=== PATIENT | female | born 1975 | race Caucasian/White ===

== ENCOUNTER 2018-08-27 23:08 | Observation (INO) | payer OTHER, SELFPAY ==
[2018-08-27 23:09] VITALS: BP 165/109; PULSE 77; RESP 18; TEMP 36.1; O2SAT 97; BMI 33.3
--- NOTE | 2018-08-27 23:24 | RAD_ITS ---
HISTORY:CPChest PainRAD - ChestLEFT SHOULDER PAIN CPChest PainRAD - ChestLEFT SHOULDER PAIN EXAM: XR Chest 1 View: COMPARISON: None FINDINGS: # of images incl. paperwork: 1 LINES/DEVICES: None. LUNGS: Radiographically clear. No consolidation, edema or effusion. No pneumothorax. MEDIASTINUM AND CARDIOVASCULAR STRUCTURES: Cardiac silhouette not enlarged. BONES AND SOFT TISSUES: Unremarkable. RAD/Chest 1 View (Portable) IMPRESSION: No radiographic evidence of acute cardiopulmonary disease. at 0003 Reported and signed by: Jenn Cloud DO Electronically Signed: Jenn Cloud DO at 0:02 EDT Tel , Service support ,
--- NOTE | 2018-08-27 23:24 | EKG12_ITS ---
Test Reason : Blood Pressure : / mmHG Vent. Rate : 080 BPM Atrial Rate : 080 BPM P-R Int : 168 ms QRS Dur : 104 ms QT Int : 404 ms P-R-T Axes : 055 057 061 degrees QTc Int : 465 ms Normal sinus rhythm Incomplete right bundle branch block Borderline ECG Confirmed by DARRON VENCES, PETR ([id number]), proposal editor MANJINDER ONTIVEROS ([id number]) on 08/30/2018 9:31:42 AM Referred By: Jayme Mansfield Confirmed By:PETR ROB MD
[2018-08-27 23:28] VITALS: BP 149/113; PULSE 83; RESP 17; O2SAT 96
--- NOTE | 2018-08-27 23:40 | ED.DCSUM_ITS ---
- ER Visit Summary Date of Service: 08/27/18 Chief Complaint: Left shoulder pain History of Present Illness: The patient is a 43 F presenting with left shoulder pain. Patient states that she has had intermittent pain in her left shoulder for the past 2 days. She states it starts in her left chest and goes to her left arm. She has nausea associated with this. She had dizziness earlier today. She denies diaphoresis, shortness of breath. She denies injury. Pain is not worsened with movement. Denies other complaints. Denies PE/DVT risk factors. Physical Examination: Vitals are stable. Blood pressure 165/109. Patient is afebrile. Alert no acute distress. HEENT exam is unremarkable. Neck is supple. Lungs are clear and equal bilaterally. Heart is regular rate and rhythm. Abdomen is soft nontender nondistended. Extremities are unremarkable. Left shoulder is nontender. Skin is warm and dry. No focal neurologic deficit. Remainder of exam is unremarkable. Emergency Department Course and Treatment: Patient was given aspirin on arrival. CBC, chemistries unremarkable. Troponin is negative. EKG is sinus rate of 80 with T wave inversion V2 compared to previous. Chest x-ray shows no acute process. On reevaluation patient is pain-free. Discussed with hospitalist for observation. Disposition: Observation Impression: Chest pain, left shoulder pain This note was generated with [employer] dictation software. It may contain incorrect words, spelling, and punctuation that were not noted in review of the chart prior to signing ED Disposition - Plan for ED Patient: Referrals: Mahsa Lira MD [Primary Care Provider] -
[2018-08-27] MEDS: Aspirin 81 MG TAB.CHEW 324 MG PO (23:54)
[2018-08-28] VITALS (12 sets, daily range): BP systolic 98–134; BP diastolic 65–87; PULSE 58–82; RESP 16–17; TEMP 36.5–37.2; O2SAT 94–98; BMI 35.2
[2018-08-28 00:31] LABS: Anion Gap 5 (5-15); BUN 20 mg/dL (7-18); BUN/Creat Ratio 23.5 RATIO (10-20); Calcium,Total 8.5 mg/dL (8.5-10.1); Chloride 106 mmol/L (98-107); Creatinine, Serum 0.85 mg/dL (0.55-1.02); EST Glomerular Filtration Rate 78 mL/min (>60); Est Glom Filt Rate - Afr Amer 94 mL/min (>60); Estimated Creatinine Clearance 77.58 ml/min; Glucose 103 mg/dL (74-106); Potassium 3.6 mmol/L (3.5-5.1); Sodium Level 139 mmol/L (136-145)
[2018-08-28 00:45] LABS: Absolute Lymphocyte Count 3.22 X10^3/ul (0.83-4.51); Absolute Neutrophil Count 4.4 X10^3/uL (2.0-7.7); Basophil# 0.04 X10^3/uL; Basophil% 0.4 % (0-1); Eosinophil# 0.87 X10^3/uL; Eosinophils% 9.5 % (0-5); Hematocrit 41.9 % (37-47); Hemoglobin 15.1 g/dl (12.0-15.0); Lymphocyte # 3.22 X10^3/ul (4.0); Lymphocyte % 35.2 % (19-41); Mean Corpuscular Hgb 31.1 pg (27.0-32.0); Mean Corpuscular Volume 86.2 fL (81-99); Mean Platelet Vol. 10.9 fl (6.2-12.0); Monocyte# 0.63 X10^3/uL; Monocyte% 6.9 % (0-10); Neutrophil # 4.38 X10^3/uL (2.7-7.7); Neutrophil % 47.8 % (47-70); POSITIVE COUNT NO; POSITIVE DIFFERENTIAL NO; POSITIVE MORPHOLOGY NO; Platelet Count 278 K/mm3 (150-450); RBC Distribution Width CV 11.9 % (11.6-14.6); RBC Distribution Width SD 36.7 fl (35.1-43.9); Red Blood Count 4.86 M/mm3 (4.2-5.4); White Blood Count 9.2 K/mm3 (4.4-11.0)
--- NOTE | 2018-08-28 00:51 | ED.RN ---
HOSPITALIST PAGED FOR DR VALDEZ
--- NOTE | 2018-08-28 01:07 | PCM.HP.STD ---
Problem List (1) Chest pain Status: Acute History of Present Illness Date of Admission: 08/27/18 Chief Complaint: left arm pain The patient is a 43 year old F with a significant history of asthma who presented to the emergency department with 2 to 3-day history of episodic left shoulder pain. He describes the pain as deep ache. Her pain radiates to her left arm into her neck. Associated with her symptoms is nausea and lightheadedness. At the time of evaluation her pain was a 2 out of 10. However she describes episodes where her pain has been as severe as 6-7 on a scale of 1-10. She denies any aggravating or ameliorating effect. She is unsure whether her pain emanated from driving as most of times she uses her left hand to drive. She tried switching to driving with her right hand. However she did not notice any change in the pain of her left arm. She reports that because of recent swelling of her ankles her PCP ordered an echocardiogram and an EKG. She reported that both the echocardiogram and the EKG was unremarkable. Past Medical History Medical History: Medical History (Last Reviewed 08/28/18 @ 04:45 by Jayme Mansfield MD) Asthma J45.909 Allergies Penicillins Allergy (Verified 08/27/18 23:09) Rash erythromycin base [Erythromycin Base] Adverse Reaction (Verified 08/27/18 23:09) Unknown Home Medications: Ambulatory Orders Medication Instructions Recorded Albuterol Inhaler [Ventolin Hfa 1 - 2 puff INHALATION Q4H PRN PRN 05/28/16 (SP)] Surgical History: hysterectomy, - - Five C-sections; wisdom tooth extraction. Lives: With Family Smoking Status: Never smoker Alcohol: Occasional - *Family History Paternal History Items: Diabetes, Heart Disease - Her grandma had heart disease when she was in her 70s to 80s. Maternal History Items: Hypertension Review of Systems Constitutional: Denies: Chills, Fever, Weight Change HEENT: Denies: Head Aches, Sinus Congestion, Sinus Drainage Cardiovascular: Reports: Light Headedness. Denies: Chest Pain, Palpitations Respiratory: Denies: Cough, Shortness of breath at rest, Sputum production Gastrointestinal: Reports: Nausea. Denies: Abdominal Pain, Vomiting Genitourinary: Denies: Dysuria Musculoskeletal: Reports: Arm Pain, Neck Pain. Denies: Joint Pain, Joint Tenderness Skin: Denies: Rash, Wounds Neurological: Denies: Numbness, Tingling, Focal weakness Psychiatric: Denies: Anxiety, Depression, Homicidal Ideations, Suicidal Ideations Hematologic/ Lymphatic: Denies: Easy Bruising, Easy Bleeding VTE Information - Inpt Only VTE Present on Admission: No VTE Mechan Device Prophylaxis: None VTE Pharm Prophylaxis ordered?: No Patient Problems: Active and Suspected Problems (Last Updated 08/28/18 @ 02:15 by Jayme Mansfield MD) Chest pain (Acute) - Physical Exam General: Alert, Oriented x3, Cooperative HEENT: Atraumatic, PERRLA, EOMI, Normocephalic Neck: Supple, No JVD, Negative Carotid Bruits Lungs: Clear to auscultation, Normal air movement Cardiovascular: Regular rate, No murmurs Abdomen: Bowel Sounds Present, Soft, Non Tender Extremities: No edema, Capillary Refill Less than 3 Seconds Skin: No rashes, No breakdown Musculoskeletal: No Tenderness to Palpation of Joints or Extremities Neurological: Neuro grossly intact Psych/Mental Status: Normal Affect, Appropriate Vital Signs Temp Pulse Resp BP Pulse Ox 96.9 F L 83 17 149/113 H 96 08/27/18 23:09 08/27/18 23:28 08/27/18 23:28 08/27/18 23:28 08/27/18 23:28 Oxygen Delivery Method Room Air Weight: 90.718 kg Body Mass Index (BMI) 33.3 Laboratory Tests Past 24 Hrs 08/27/18 08/27/18 23:55 23:55 WBC 9.2 RBC 4.86 Hgb 15.1 H Hct 41.9 MCV 86.2 MCH 31.1 MCHC 36.0 RDW 11.9 RDW Differential 36.7 Plt Count 278 MPV 10.9 Immature Gran % (Auto) 0.200 Neut % (Auto) 47.8 Lymph % (Auto) 35.2 Barren % (Auto) 6.9 Eos % (Auto) 9.5 H Baso % (Auto) 0.4 Absolute Neuts (auto) 4.4 Absolute Lymphs (auto) 3.22 Total Counted Not Reportable Sodium 139 Potassium 3.6 Chloride 106 Carbon Dioxide 28.0 Anion Gap 5 BUN 20 H Creatinine 0.85 Estim Creat Clear Calc 77.58 Est GFR (MDRD) Af Amer 94 Est GFR (MDRD) Non-Af 78 BUN/Creatinine Ratio 23.5 H Glucose 103 Calcium 8.5 Troponin I < 0.015 Assessment/Plan All Active Problems (Last Updated 08/28/18 @ 02:15 by Jayme Mansfield MD) Chest pain (Acute) The patient is a 43 year old F with a significant history of asthma who presented to the emergency department with 2 to 3-day history of episodic left shoulder pain; that radiated to her left arm and left neck consistent with angina equivalent of pain. Angina equivalent TINA Score for unstable angina/NSTEMI: 1 point (5% all cause mortality risk) Heart score: 1 point; low score (nonspecific repolarization disturbance) Admit to a monitored bed on PCU CXR independently reviewed confirms no acute cardiopulmonary process. EKG independently reviewed confirms T-wave inversion in leads V2 Old records reviewed did not show T-wave inversion in leads V2 ASA 81 mg p.o. daily SL NTG 0.4 mg prn as needed for chest pain Morphine as needed for pain We will check lipid panel. Serial cardiac enzymes Stat EKG as needed for chest pain If chest pain persist consider stress test. If her chest pain goes away consider discharge with outpatient stress test. Asthma Stable PRN albuterol continued. DVT prophylaxis Subcutaneous Lovenox ordered. Code Visit Inpatient E&M: 93732 Init Hosp L3
--- NOTE | 2018-08-28 01:58 | EKG12_ITS ---
Test Reason : CP ADMISSION Blood Pressure : / mmHG Vent. Rate : 067 BPM Atrial Rate : 067 BPM P-R Int : 166 ms QRS Dur : 100 ms QT Int : 452 ms P-R-T Axes : 059 061 061 degrees QTc Int : 477 ms Normal sinus rhythm Normal ECG Confirmed by GERALD VENCES, ELEAZAR ([id number]), assistant film editor RAJI FERRO ([id number]) on 08/31/2018 12:33:59 PM Referred By: Jayme Mansfield Confirmed By:ELEAZAR DUARTE MD
[2018-08-28 06:40] LABS: Cholesterol 196 mg/dL (200); High Density Lipoprotein 32 mg/dL; Triglycerides 470 mg/dL
[2018-08-28] MEDS: Aspirin E.C. 81 MG Tablet PO (09:22)
[2018-08-28] MEDS: Acetaminophen 325 MG Tablet 650 MG PO (12:46)
--- NOTE | 2018-08-28 18:22 | PCM.HOSP.N ---
Hospitalist Note Patient was seen and examined today, she has had no more episodes of left arm pain, she is agreed to undergo a stress test tomorrow, she is able to walk on the treadmill and so we will make sure that it is a walking nuclear stress test tomorrow. He has no risk factors for coronary artery disease.
[2018-08-28] MEDS: 0.9% NaCl Peripheral Flush Adult/Peds IV (21:36)
[2018-08-29 03:00] VITALS: BP 99/58; PULSE 57; PULSE 60; RESP 18; TEMP 36.6; O2SAT 95
[2018-08-29 05:15] VITALS: BP 109/70; PULSE 71; RESP 18; TEMP 36.6; O2SAT 94
[2018-08-29] MEDS: Aspirin E.C. 81 MG Tablet PO (05:19)
[2018-08-29 05:23] LABS: Absolute Lymphocyte Count 2.96 X10^3/ul (0.83-4.51); Absolute Neutrophil Count 4.5 X10^3/uL (2.0-7.7); Basophil# 0.03 X10^3/uL; Basophil% 0.3 % (0-1); Eosinophil# 0.73 X10^3/uL; Eosinophils% 8.3 % (0-5); Hematocrit 42.5 % (37-47); Hemoglobin 15.1 g/dl (12.0-15.0); Lymphocyte # 2.96 X10^3/ul (4.0); Lymphocyte % 33.8 % (19-41); Mean Corp Hgb Conc 35.5 g/gl (32-36); Mean Corpuscular Hgb 30.2 pg (27.0-32.0); Mean Platelet Vol. 10.5 fl (6.2-12.0); Monocyte% 5.7 % (0-10); Neutrophil # 4.52 X10^3/uL (2.7-7.7); Neutrophil % 51.7 % (47-70); Platelet Count 262 K/mm3 (150-450); RBC Distribution Width CV 11.7 % (11.6-14.6); RBC Distribution Width SD 35.4 fl (35.1-43.9); White Blood Count 8.8 K/mm3 (4.4-11.0)
[2018-08-29 05:26] LABS: POSITIVE COUNT NO; POSITIVE DIFFERENTIAL NO; POSITIVE MORPHOLOGY NO
[2018-08-29 05:32] LABS: Partial Thromboplast Time 31.1 Seconds (24.1-36.2)
[2018-08-29 05:36] LABS: Anion Gap 10 (5-15); BUN 15 mg/dL (7-18); BUN/Creat Ratio 18.8 RATIO (10-20); Calcium,Total 8.3 mg/dL (8.5-10.1); Chloride 103 mmol/L (98-107); EST Glomerular Filtration Rate 84 mL/min (>60); Est Glom Filt Rate - Afr Amer 101 mL/min (>60); Estimated Creatinine Clearance 82.43 ml/min; Glucose 94 mg/dL (74-106); Potassium 3.8 mmol/L (3.5-5.1); Sodium Level 140 mmol/L (136-145)
--- NOTE | 2018-08-29 05:55 | EKG12_ITS ---
Test Reason : AM EKG Blood Pressure : / mmHG Vent. Rate : 066 BPM Atrial Rate : 066 BPM P-R Int : 162 ms QRS Dur : 100 ms QT Int : 454 ms P-R-T Axes : 063 047 060 degrees QTc Int : 475 ms Normal sinus rhythm Cannot rule out Inferior infarct , age undetermined Abnormal ECG Confirmed by GERALD VENCES, ELEAZAR ([id number]), health editor RAJI FERRO ([id number]) on 08/31/2018 12:27:49 PM Referred By: Jayme Mansfield Confirmed By:ELEAZAR DUARTE MD
[2018-08-29 07:21] VITALS: O2SAT 94
[2018-08-29 09:02] VITALS: BP 119/72; PULSE 80; RESP 14; TEMP 36.8; O2SAT 94
--- NOTE | 2018-08-29 09:38 | STRESSREP_ITS ---
Stress Test Report Exercise myocardial perfusion stress test. 43-year-old lady with a history of chest pain. Stress protocol: Resting EKG demonstrates normal sinus rhythm with a rate of 73 bpm normal intervals are noted. The patient exercised according to regular Nael protocol for total duration of 9 minutes. Patient completed stage III of the Nael pr otocol the maximum heart rate attained was 166 bpm which was 93% of maximum predicted heart rate the maximum workload was 10.1 metabolic equivalents. The patient maintained sinus rhythm throughout the recording. At rest there were no ST or T wave changes noted suggest ischemia peak exercise upsloping ST changes only were noted with no meet the criteria for ischemia. No clinical angina was noted the test was terminated due to leg fatigue. The resting blood pressure was 122/88 with a peak blood pressure 168/82. Rate pressure product was 27,800. Myocardial perfusion protocol. 14.2 mCi of technetium 99m sestamibi was injected at rest. Patient exercised according to regular Nael protocol for 9 minutes and at peak exercise 43.9 mCi of technetium 99m sestamibi was injected stress images were obtained stress and rest images were reconstructed and compared in the short axis vertical long horizontal long axis. Gated images were also obtained per Perfusion SPECT analysis: Review of the stress images demonstrate normal uptake of tracer noted in all areas of the myocardium. The resting images similarly demonstrate normal uptake of tracer noted in all areas of the myocardium. No reversibility is noted suggest ischemia. No previous infarct is noted. Gated SPECT analysis: The gated ejection fraction is noted to be 79%. Conclusion: Normal exercise myocardial perfusion stress test at a high workload. Preserved ejection fraction.
--- NOTE | 2018-08-29 09:46 | DCINST_ITS ---
- Discharge Diagnoses Current Active Problems: Current Active and Chronic Problems (Last Reviewed 08/28/18 @ 04:45 by Jayme Mansfield MD) Chest pain (Acute) You will use the following diet at home:: No restrictions Your food should be the consistency of: Regular Your liquids should be the consistency of: Regular/Thin Discharge Activity: Return to Normal Activity Weight Bearing Status: Full weight bearing Allergies/Adverse Reactions: Allergies Penicillins Allergy (Verified 08/27/18 23:09) Rash erythromycin base [Erythromycin Base] Adverse Reaction (Verified 08/27/18 23:09) Unknown Medications to take at Discharge Albuterol Inhaler [Ventolin Hfa] 1 - 2 puff INHALATION Q4H PRN PRN 05/28/16 Primary Care Physician: Mahsa Lira MD [Primary Care Provider] - Please follow up with your Primary Care Physician in: in 2 weeks Test Results: Test results from this visit will be discussed in further detail at your follow- up appointment, if applicable.
--- NOTE | 2018-08-29 09:52 | DS.PCM_ITS ---
Discharge Date and Diagnosis - Problem List Patient Problems: Active and Suspected Problems (Last Reviewed 08/28/18 @ 04:45 by Jayme Mansfield MD) Chest pain (Acute) Date of Admission: 08/27/18 Date of Discharge: 08/29/18 - Primary Discharge Diagnosis Active and Suspected Problems (Last Reviewed 08/28/18 @ 04:45 by Jayme Mansfield MD) #1 left shoulder pain-etiology unknown #2 left neck pain-etiology unknown Hospital Course and Treatment Imaging Results: 08/29/18 05:55 Nuclear Stress Test - Treadmil [NM] AM (NON MEDS) Operations: None Procedures: Nuclear stress test Summary of Care Provided: The patient is a 43 year old F was seen in the emergency room at [facility] chief complaint of left upper arm pain involving the shoulder and radiating into the left neck area. Patient denied to this examiner any chest pain. He described the left arm pain as achy in nature. Patient's work- up in the emergency room was unremarkable including a chest x-ray, EKG, and cardiac enzymes. Patient was placed in observation status on PCU, cardiac enzymes were cycled and these remain normal. EKG remained normal. Patient underwent an exercise nuclear stress test on 08/29/2018 which showed no evidence of reversible ischemia. I had a discussion with the patient concerning her symptoms and told her that perhaps she may have problems with degenerative disc disease in her neck and this would have to be followed up as an outpatient-I did not do any x-rays on her neck while she was in the hospital here. On 08/29/2018, patient was seen and examined: On examination she appeared in good health and spirits. Vital signs as documented. Skin warm and dry and without overt rashes. Neck without JVD. Lungs clear. Heart exam notable for regular rhythm, normal sounds and absence of murmurs, rubs or gallops. Abdomen unremarkable and without evidence of organomegaly, masses, or abdominal aortic enlargement. Extremities nonedematous. Neuro: Cranial nerves II through XII are grossly intact, no focal motor deficits were noted, sensation to light touch and pinprick is intact. Psych: Patient is alert and oriented x3, she does not appear anxious or depressed Patient was discharged in stable condition on 08/29/2018. Patient Problems: Active and Suspected Problems (Last Reviewed 06/16/19 @ 04:45 by Jayme Mansfield MD) Chest pain (Acute) - Physical Exam Vital Signs Temp Pulse Resp BP Pulse Ox 98.3 F 80 14 119/72 94 08/29/18 09:02 08/29/18 09:02 08/29/18 09:02 08/29/18 09:02 08/29/18 09:02 Oxygen Delivery Method Room Air Weight: 96 kg Body Mass Index (BMI) 35.2 Intake and Output for Last 24 Hours 08/27/18 08/28/18 08/29/18 23:59 23:59 23:59 Intake Total 1550 / 1550 60 / 60 Balance 1550 / 1550 60 / 60 Laboratory Tests Past 24 Hrs 08/29/18 08/29/18 08/29/18 05:15 05:15 05:15 WBC 8.8 RBC 5.00 Hgb 15.1 H Hct 42.5 MCV 85.0 MCH 30.2 MCHC 35.5 RDW 11.7 RDW Differential 35.4 Plt Count 262 MPV 10.5 Immature Gran % (Auto) 0.200 Neut % (Auto) 51.7 Lymph % (Auto) 33.8 [place] % (Auto) 5.7 Eos % (Auto) 8.3 H Baso % (Auto) 0.3 Absolute Neuts (auto) 4.5 Absolute Lymphs (auto) 2.96 Total Counted Not Reportable PT 13.0 INR 1.0 APTT 31.1 Sodium 140 Potassium 3.8 Chloride 103 Carbon Dioxide 27.0 Anion Gap 10 BUN 15 Creatinine 0.80 Estim Creat Clear Calc 82.43 Est GFR (MDRD) Af Amer 101 Est GFR (MDRD) Non-Af 84 BUN/Creatinine Ratio 18.8 Glucose 94 Calcium 8.3 L Discharge Activity: Return to Normal Activity Weight Bearing Status: Full weight bearing Home Medications: Medications to take at Discharge Albuterol Inhaler [Ventolin Hfa] 1 - 2 puff INHALATION Q4H PRN PRN 05/28/16 Primary Care Physician: Mahsa Lira MD [Primary Care Provider] - Please follow up with your Primary Care Physician in: in 2 weeks Disposition: Home Minutes spent on discharge:: 25 Patient Condition:: Stable Medical Necessity - Tobacco Use Smoking Status: Never smoker Meaningful Use Info Meaningful Use Diagnoses (Choose all that apply): None applicable Code Visit OBSV E&M: 09395 Observation care discharge
[2018-08-29 09:59] VITALS: PULSE 98
== END 2018-08-29 09:46 | disposition home or self-care (01) ==
LOC: ED 23:35 → PCU 08-28 01:38
PROVIDERS: Admitting Provider Hospitalist; Emergency Provider Emergency Medicine; Family Provider Internal Medicine; PCP Internal Medicine; Referring Provider Hospitalist; Visit Provider Internal Medicine
DX: R07.89 Other chest pain (principal); M25.512 Pain in left shoulder; M54.2 Cervicalgia; R42 Dizziness and giddiness; R11.0 Nausea; J45.909 Unspecified asthma, uncomplicated
CPT/HCPCS: 36415; 71045; 78452; 80048; 80061; 84484; 85025; 85610; 85730; 93005; 93017; 99218; 99285; A9500; J7030; A4216; G0378

== ENCOUNTER 2019-07-25 15:00 | Emergency (ER) | payer OTHER, SELFPAY ==
[2018-08-28 01:59] VITALS: BMI 35.2
[2019-07-25 15:01] VITALS: BP 138/90; PULSE 116; RESP 17; TEMP 37.5; O2SAT 100; BMI 35.3
[2019-07-25 15:04] VITALS: BP 138/90; PULSE 116; RESP 17; TEMP 37.5; O2SAT 97
--- NOTE | 2019-07-25 15:10 | EKG12_ITS ---
Test Reason : CP Blood Pressure : / mmHG Vent. Rate : 106 BPM Atrial Rate : 106 BPM P-R Int : 148 ms QRS Dur : 104 ms QT Int : 358 ms P-R-T Axes : 053 054 053 degrees QTc Int : 475 ms Sinus tachycardia Septal infarct , age undetermined Possible Lateral infarct , age undetermined Possible Inferior infarct , age undetermined Abnormal ECG Confirmed by AROLDO BOWERS ([id number]), rewrite editor BIJU HERR ([id number]) on 07/31/2019 1:51:19 PM Referred By: MINH Confirmed By:AROLDO BOWERS
--- NOTE | 2019-07-25 15:11 | ED.DCSUM_ITS ---
History of Present Illness Chief Complaint: Chest Pain Informant: Patient Onset: Yesterday Current Severity: Mild Maximum Severity: Moderate Narrative: Patient presents with intermittent sharp left upper chest pain that she noted last night. She states she has allergies and frequent cough this time of the year. She is not sure she may have coughed and pulled a muscle. She does not feel short of breath. She used her nebulizer treatment around noon today and her shortness of breath and wheezing along with cough seem to be improved. She denies significant cardiac history. She was admitted a year ago for cardiac evaluation and had a negative stress test at that time. She denies any cardiac complaints in the interval time. Patient denies risk factors for DVT or PE. - Past Medical History (1) Asthma Status: Chronic Past Medical History - Allergies and Home Meds Allergies/Adverse Reactions: Allergies Penicillins Allergy (Verified 07/25/19 15:07) Rash erythromycin base [Erythromycin Base] Adverse Reaction (Verified 07/25/19 15:07) Unknown Primary Care Physician: Mahsa Lira MD [Primary Care Provider] - Prior records reviewed: Yes Surgical History: hysterectomy, - - Five C-sections; wisdom tooth extraction. Lives: With Family Smoking Status: Never smoker - Family History Paternal Family History: Reports: Diabetes, Heart Disease - Her grandma had heart disease when she was in her 70s to 80s. Maternal Family History: Reports: Hypertension Review of Systems General: Denies: Chills, Fever Eyes: Denies: Visual changes - bilaterally ENT: Denies: Bilateral ear pain Cardiovascular: Reports: Chest pain Respiratory: Reports: Cough, - - Wheezing Gastrointestinal: Denies: Abdominal pain, Nausea, Vomiting, Diarrhea Genitourinary: Denies: Dysuria Musculoskeletal: Denies: Swelling, Extremity Pain Skin: Denies: Rash Neurological: Denies: Headache Hematologic: Denies: Easy bruising, Easy bleeding Allergy: Denies: Uticaria Physical Exam Vital Signs/Narrative: Vital Signs Temp Pulse Resp BP Pulse Ox 07/25/19 15:01 99.5 F H 116 H 17 138/90 H 100 Inital Vital Signs reviewed: Yes General: Well nourished, Well developed Head: Normocephalic ENT: Moist mucous membranes Neck: Supple Cardiovascular: Regular rhythm, Tachycardia Respiratory: No distress, CTA bilaterally, Chest tenderness - Mild left anterior chest wall tenderness. No crepitus. Abdomen: Soft, Nontender Extremities: Nontender Skin: Normal color, No rash Neurological: Alert, Oriented x3, Normal Strength, Normal Sensation Psychological: Normal affect Diagnostic/Tx/Re-eval Impressions Chest X-Ray 07/25/19 15:20 IMPRESSION: Normal x-ray examination of the chest. Electronically Signed: Nish Smith, at 15:31 EDT , Service support , 07/25/19 15:20 Chest 1 View (Portable) [RAD] Stat Laboratory Results 07/25/19 07/25/19 07/25/19 15:06 15:06 15:06 WBC 11.5 H RBC 4.92 Hgb 15.0 Hct 43.5 MCV 88.4 MCH 30.5 MCHC 34.5 RDW Std Deviation 38.5 RDW Coeff of Clara 11.9 Plt Count 269 MPV 10.9 Immature Gran % (Auto) 0.300 Neut % (Auto) 74.9 H Lymph % (Auto) 15.9 L [place] % (Auto) 5.0 Eos % (Auto) 3.6 Baso % (Auto) 0.3 Absolute Neuts (auto) 8.6 H Absolute Lymphs (auto) 1.83 Nucleated RBC % 0 D-Dimer Quant (PE/DVT) <= 0.27 Sodium 136 Potassium 3.8 Chloride 102 Carbon Dioxide 27.0 Anion Gap 7 BUN 13 Creatinine 0.83 Estim Creat Clear Calc 78.64 Est GFR (MDRD) Af Amer 96 Est GFR (MDRD) Non-Af 79 BUN/Creatinine Ratio 15.6 Glucose 109 H Calcium 9.1 Troponin I < 0.015 Serum , Qual 07/25/19 15:06 WBC RBC Hgb Hct MCV MCH MCHC RDW Std Deviation RDW Coeff of Clara Plt Count MPV Immature Gran % (Auto) Neut % (Auto) Lymph % (Auto) [place] % (Auto) Eos % (Auto) Baso % (Auto) Absolute Neuts (auto) Absolute Lymphs (auto) Nucleated RBC % D-Dimer Quant (PE/DVT) Sodium Potassium Chloride Carbon Dioxide Anion Gap BUN Creatinine Estim Creat Clear Calc Est GFR (MDRD) Af Amer Est GFR (MDRD) Non-Af BUN/Creatinine Ratio Glucose Calcium Troponin I Serum , Qual NEGATIVE - EKG Initial EKG Interpretation: Sinus Tachycardia - Sinus tach at 106. EKG grossly unchanged from August 2018 with no evidence of ST elevation. - Medical Decision Making Patient was given aspirin on arrival. On repeat evaluation she is resting comfortably. She is reassured with our test results. Patient just had a stress test less than 1 year ago that was unremarkable. Symptoms are not typical for cardiac pain and I suspect that she pulled a muscle with her recent cough. Patient will continue Tylenol or ibuprofen at home for pain. ED Disposition - Plan for ED Patient: Disposition: Home or Assisted Living Diagnosis: Chest wall pain Instructions: ED Chest Pain Atypical Unkn Cause Referrals: Mahsa Lira MD [Primary Care Provider] - 3-5 Days if not improving
[2019-07-25] MEDS: Aspirin 81 MG TAB.CHEW 324 MG PO (15:15)
[2019-07-25 15:18] VITALS: O2SAT 97
[2019-07-25 15:19] LABS: Absolute Lymphocyte Count 1.83 X10^3/uL (0.83-4.51); Absolute Neutrophil Count 8.6 X10^3/uL (2.0-7.7); Basophil# 0.04 X10^3/uL; Basophil% 0.3 % (0-1); Eosinophil# 0.41 X10^3/uL; Eosinophils% 3.6 % (0-5); Hematocrit 43.5 % (37-47); Lymphocyte # 1.83 X10^3/ul (4.0); Lymphocyte % 15.9 % (19-41); Mean Corp Hgb Conc 34.5 g/dL (32-36); Mean Corpuscular Hgb 30.5 pg (27.0-32.0); Mean Corpuscular Volume 88.4 fL (81-99); Mean Platelet Vol. 10.9 fl (6.2-12.0); Monocyte# 0.58 X10^3/uL; NRBC Flagged by Analyzer 0 % (0-5); Neutrophil # 8.63 X10^3/uL (2.7-7.7); Neutrophil % 74.9 % (47-70); Platelet Count 269 K/mm3 (150-450); RBC Distribution Width CV 11.9 % (11.6-14.6); RBC Distribution Width SD 38.5 fl (35.1-43.9); Red Blood Count 4.92 M/mm3 (4.2-5.4); White Blood Count 11.5 K/mm3 (4.4-11.0)
--- NOTE | 2019-07-25 15:20 | RAD_ITS ---
STUDY: X-RAY CHEST REASON FOR EXAM: Female, 44 years old. Left sided chest pain TECHNIQUE: Single AP portable view of the chest. COMPARISON: Comparison is made with prior examination dated August 27, 2018. FINDINGS: EKG electrode are seen. The lungs are clear and expanded. There is no demonstrated pleural abnormality. Normal size heart. Normal mediastinum and billy. Normal visualized pulmonary arteries. Normal visualized aortic arch and descending thoracic aorta. Normal visualized thoracic spine. Normal visualized ribs, clavicles, and shoulders. There is no demonstrated abnormality of the visualized soft tissue structures of the upper abdomen. RAD/Chest 1 View (Portable) IMPRESSION: Normal x-ray examination of the chest. Electronically Signed: Nish Smith, at 15:31 EDT , Service support ,
[2019-07-25 15:31] LABS: Anion Gap 7 (5-15); BUN 13 mg/dL (7-18); BUN/Creat Ratio 15.6 RATIO (10-20); Calcium,Total 9.1 mg/dL (8.5-10.1); Chloride 102 mmol/L (98-107); Creatinine, Serum 0.83 mg/dL (0.55-1.02); EST Glomerular Filtration Rate 79 mL/min (>60); Est Glom Filt Rate - Afr Amer 96 mL/min (>60); Estimated Creatinine Clearance 78.64 ml/min; Glucose 109 mg/dL (74-106); Potassium 3.8 mmol/L (3.5-5.1); Sodium Level 136 mmol/L (136-145)
[2019-07-25 15:46] LABS: D-Dimer Quantitative (DVT/PE) <= 0.27 FEU/ug/m (0.27-0.49)
[2019-07-25 15:47] LABS: Internal QC Validated? YES +Cl - CLEAR BKGD; Pregnancy, Serum, hCG Quali. NEGATIVE Negative
[2019-07-25 16:00] VITALS: BP 129/82; PULSE 100; RESP 18; O2SAT 96
[2019-07-25 16:04] VITALS: BP 129/82; PULSE 100; RESP 18; TEMP 37.5; O2SAT 96
[2019-07-25 16:19] VITALS: BP 129/82; PULSE 102; RESP 18; O2SAT 97
== END 2019-07-25 16:37 | disposition home or self-care (01) ==
PROVIDERS: Emergency Provider Emergency Medicine; PCP Internal Medicine
DX: R07.89 Other chest pain (principal); J45.909 Unspecified asthma, uncomplicated; R00.0 Tachycardia, unspecified; Z88.1 Allergy status to other antibiotic agents; Z88.0 Allergy status to penicillin; Z90.710 Acquired absence of both cervix and uterus
CPT/HCPCS: 71045; 80048; 84484; 84703; 85025; 85379; 93005; 99285; A4216

== ENCOUNTER → 2019-08-03 11:30 | Outpatient (CLI) | payer OTHER, SELFPAY ==
[2019-07-25 15:01] VITALS: BMI 35.3
== END ==
PROVIDERS: PCP Internal Medicine; Referring Provider Internal Medicine; Visit Provider Internal Medicine
DX: Z20.828 Contact with and (suspected) exposure to other viral communicable diseases (principal)
CPT/HCPCS: 87635; G2023; U0004

== ENCOUNTER 2019-08-06 13:58 | Emergency (ER) | payer OTHER, SELFPAY ==
[2019-08-06 14:01] VITALS: BP 126/90; PULSE 123; RESP 24; TEMP 36.6; O2SAT 98; BMI 34.9
[2019-08-06 14:02] VITALS: BP 126/90; PULSE 123; RESP 24; TEMP 36.6; O2SAT 98
--- NOTE | 2019-08-06 14:29 | EKG12_ITS ---
Test Reason : Blood Pressure : / mmHG Vent. Rate : 097 BPM Atrial Rate : 097 BPM P-R Int : 154 ms QRS Dur : 104 ms QT Int : 376 ms P-R-T Axes : 066 058 060 degrees QTc Int : 477 ms Normal sinus rhythm Normal ECG When compared with ECG of 25-JUL-2019 15:10, No significant change was found Confirmed by PETR ROB MD ([id number]), television news video editor RAJI FERRO ([id number]) on 08/15/2019 1:53:18 PM Referred By: MAXIMINO Confirmed By:EPTR ROB MD
[2019-08-06 15:06] VITALS: BP 126/90; PULSE 123; PULSE 97; RESP 20; RESP 24; TEMP 36.6; O2SAT 94; O2SAT 98
[2019-08-06 15:06] LABS: Absolute Lymphocyte Count 1.48 X10^3/uL (0.83-4.51); Absolute Neutrophil Count 8.5 X10^3/uL (2.0-7.7); Basophil# 0.04 X10^3/uL; Basophil% 0.4 % (0-1); Eosinophil# 0.31 X10^3/uL; Eosinophils% 2.8 % (0-5); Hemoglobin 13.7 g/dL (12.0-15.0); Lymphocyte # 1.48 X10^3/ul (4.0); Lymphocyte % 13.3 % (19-41); Mean Corp Hgb Conc 34.3 g/dL (32-36); Mean Corpuscular Hgb 30.9 pg (27.0-32.0); Mean Corpuscular Volume 90.3 fL (81-99); Mean Platelet Vol. 9.6 fl (6.2-12.0); Monocyte% 6.3 % (0-10); NRBC Flagged by Analyzer 0 % (0-5); Neutrophil # 8.51 X10^3/uL (2.7-7.7); Neutrophil % 76.1 % (47-70); Platelet Count 362 K/mm3 (150-450); RBC Distribution Width CV 11.9 % (11.6-14.6); RBC Distribution Width SD 38.7 fl (35.1-43.9); Red Blood Count 4.43 M/mm3 (4.2-5.4); White Blood Count 11.2 K/mm3 (4.4-11.0)
[2019-08-06 15:20] LABS: D-Dimer Quantitative (DVT/PE) 0.57 FEU/ug/m (0.27-0.49)
[2019-08-06 15:22] LABS: Anion Gap 6 (5-15); BUN 12 mg/dL (7-18); Calcium,Total 8.8 mg/dL (8.5-10.1); Chloride 106 mmol/L (98-107); Creatinine, Serum 0.86 mg/dL (0.55-1.02); EST Glomerular Filtration Rate 77 mL/min (>60); Est Glom Filt Rate - Afr Amer 93 mL/min (>60); Glucose 110 mg/dL (74-106); Potassium 3.5 mmol/L (3.5-5.1); Sodium Level 138 mmol/L (136-145)
[2019-08-06 15:31] LABS: Lactic Acid 1.6 mmol/L (0.4-1.9)
[2019-08-06] MEDS: 0.9% Normal Saline 1,000 ML 999 ML IV (15:37)
--- NOTE | 2019-08-06 15:52 | CT_ITS ---
STUDY: CTA CHEST REASON FOR EXAM: Female, 44 years old. SOB,COUGH -- HX-ASTHMA RADIATION DOSAGE (If Supplied By Facility): CTDIvol = ( 12.36 ) mGy, DLP = ( 474.58 ) mGycm TECHNIQUE: The examination was performed with the intravenous administration of 100CC ISOVUE 370. Post-processing of the angiographic images was performed, with multiplanar reformation and 3D reconstruction. Individualized dose optimization techniques were used for this CT. COMPARISON: None. FINDINGS: The heart and pericardium are normal. The aorta is normal in caliber. No aneurysm or dissection. There is no mediastinal mass or adenopathy. There is no hilar or axillary adenopathy. There is no evidence of pulmonary embolus. There is no pleural effusion. Coronary consolidation in the left upper lobe. Patchy nodular opacities in the left lower lobe. Trace hazy opacity in the right upper lobe. Visualized abdomen is unremarkable. There is no osseous abnormality. CT/CTA Chest W/WO Contrast IMPRESSION: 1. No pulmonary embolus or aortic dissection. 2. Left upper lobe consolidation and mild hazy opacities in the right upper and left lower lobes, consistent with pneumonia. Electronically Signed: Yasmeen Perkins MD at 17:20 EDT Tel , Service support ,
--- NOTE | 2019-08-06 15:55 | RAD_ITS ---
STUDY: X-RAY CHEST REASON FOR EXAM: Female, 44 years old. COUGH, SOB. HX OF ASTHMA TECHNIQUE: PA and lateral views of the chest. COMPARISON: CT chest 07/07/2019 4:08 PM. FINDINGS: No pleural effusion. Mild opacity in the left suprahilar region. Lungs are otherwise clear. Normal size heart. Normal mediastinum and billy. Normal visualized pulmonary arteries. Normal visualized aortic arch and descending thoracic aorta. RAD/Chest PA and Lateral IMPRESSION: Left suprahilar density, possible mass or pneumonia. CT of the chest is more sensitive for pulmonary findings. Correlate with CT of the chest performed the same time. Electronically Signed: Yasmeen Perkins MD at 16:23 EDT Tel , Service support ,
[2019-08-06 17:31] VITALS: BP 146/88; PULSE 97; RESP 24; TEMP 36.9; O2SAT 97
--- NOTE | 2019-08-06 17:44 | ED.VIS.DYS ---
History of Present Illness Chief Complaint: Shortness of Breath Informant: Patient Onset: Weeks Timing: Continuous Quality: Dyspnea on exertion, Wheezing Relieved by: Albuterol Associated Symptoms: Chills, Cough, Fever, Green sputum Chest Pain: None Narrative: Patient is a 44-year-old female with history of seasonal allergies and asthma presenting with worsening shortness of breath and cough. Patient states 2 weeks ago she started coughing and was evaluated for what ultimately ended up being a chest wall strain. She was in the ER at that time. She went home that night and then developed fever, shortness of breath and continued cough. She was using her Ventolin nebulizer every 4 hours but felt like it really was not helping. 1 week ago she called her PCP at [facility] and was told that she needed COVID test before she be started on any medications. She finally had a COVID test done on which resulted as negative. She was called in a nasal spray, prednisone and Bactrim. Patient states she is only had 4 doses of her Bactrim. She is not feeling any better and is now having a productive cough with green sputum. She continues to feel short of breath she decided come to the emergency room to be evaluated further. Patient thinks she might have had some recent fevers but not sure. She denies any swelling of her legs or history of DVT or PE. She is not on any control or estrogen medications. She denies any associated nausea, vomiting, abdominal pain or GI symptoms. She denies any urinary symptoms. She denies any other complaints at this time. Past Medical History - Allergies and Home Meds Allergies/Adverse Reactions: Allergies Penicillins Allergy (Verified 07/25/19 15:07) Rash erythromycin base [Erythromycin Base] Adverse Reaction (Verified 07/25/19 15:07) Unknown Primary Care Physician: Mahsa Lira MD [Primary Care Provider] - Past Medical History: - - Asthma, seasonal allergies Surgical History: hysterectomy, - - Five C-sections; wisdom tooth extraction. Lives: With Family Smoking Status: Never smoker - Family History Paternal Family History: Reports: Diabetes, Heart Disease - Her grandma had heart disease when she was in her 70s to 80s. Maternal Family History: Reports: Hypertension Review of Systems General: Reports: Chills, Fever, Malaise. Denies: Sweats Eyes: Denies: Visual changes - bilaterally, Diplopia ENT: Denies: Rhinorrhea, Sore throat Cardiovascular: Denies: Chest pain, Palpitations Respiratory: Reports: Dyspnea, Cough, Sputum. Denies: Dyspnea on exertion Gastrointestinal: Denies: Abdominal pain, Nausea, Vomiting, Diarrhea, Melena, Hematochezia Genitourinary: Denies: Dysuria, Hematuria, Frequency Musculoskeletal: Denies: Back pain, Extremity Pain Skin: Denies: Rash, Wounds Neurological: Denies: Headache, Weakness, Numbness Physical Exam Vital Signs/Narrative: Vital Signs Temp Pulse Resp BP Pulse Ox 08/06/19 17:31 98.4 F 97 24 H 146/88 H 97 08/06/19 15:06 97.8 F 97 20 H 126/90 H 94 08/06/19 14:02 97.8 F 123 H 24 H 126/90 H 98 08/06/19 14:01 97.8 F 123 H 24 H 126/90 H 98 Inital Vital Signs reviewed: Yes General: Well nourished, Well developed, No Acute Distress Head: Normocephalic, Atraumatic Eyes: Perrl, EOMI ENT: Moist mucous membranes, No rhinorrhea, TM's clear Neck: Supple, Nontender, No JVD Cardiovascular: Regular rhythm, No murmurs, Tachycardia Respiratory: No distress, Chest nontender, Wheezing - Mild expiratory bilateral, - - No Conversational dyspnea. Negative for: Rales, Rhonchi Abdomen: Soft, Nontender, Nondistended, Normal bowel sounds Back: Nontender, Normal Inspection Extremities: Nontender, No edema Skin: Normal color, No rash Neurological: Alert, Oriented x3, Cranial nerves II-XII grossly intact, Normal Strength, Normal Sensation Psychological: Normal affect, Normal Mood Diagnostic/Tx/Re-eval Chest X-Ray - ED: 2 View, Read by ED Physician, Read by Radiologist, Left Infiltrate CTA PE Study: No Evidence of PE Clinical Impression(s) from Imaging Studies Chest CTA 08/06/19 15:52 IMPRESSION: 1. No pulmonary embolus or aortic dissection. 2. Left upper lobe consolidation and mild hazy opacities in the right upper and left lower lobes, consistent with pneumonia. Electronically Signed: Yasmeen Perkins MD at 17:20 EDT Tel , Service support , Chest X-Ray 08/06/19 15:55 IMPRESSION: Left suprahilar density, possible mass or pneumonia. CT of the chest is more sensitive for pulmonary findings. Correlate with CT of the chest performed the same time. Electronically Signed: Yasmeen Perkins MD at 16:23 EDT Tel , Service support , Laboratory Data 08/06/19 08/06/19 08/06/19 14:55 14:55 14:55 WBC 11.2 H RBC 4.43 Hgb 13.7 Hct 40.0 MCV 90.3 MCH 30.9 MCHC 34.3 RDW Std Deviation 38.7 RDW Coeff of Clara 11.9 Plt Count 362 MPV 9.6 Immature Gran % (Auto) 1.100 H Neut % (Auto) 76.1 H Lymph % (Auto) 13.3 L [place] % (Auto) 6.3 Eos % (Auto) 2.8 Baso % (Auto) 0.4 Absolute Neuts (auto) 8.5 H Absolute Lymphs (auto) 1.48 Nucleated RBC % 0 D-Dimer Quant (PE/DVT) 0.57 H* Sodium 138 Potassium 3.5 Chloride 106 Carbon Dioxide 26.0 Anion Gap 6 BUN 12 Creatinine 0.86 Estim Creat Clear Calc 75.90 Est GFR (MDRD) Af Amer 93 Est GFR (MDRD) Non-Af 77 BUN/Creatinine Ratio 14.0 Glucose 110 H Lactic Acid Calcium 8.8 Troponin I < 0.015 08/06/19 14:55 WBC RBC Hgb Hct MCV MCH MCHC RDW Std Deviation RDW Coeff of [place] Plt Count MPV Immature Gran % (Auto) Neut % (Auto) Lymph % (Auto) [place] % (Auto) Eos % (Auto) Baso % (Auto) Absolute Neuts (auto) Absolute Lymphs (auto) Nucleated RBC % D-Dimer Quant (PE/DVT) Sodium Potassium Chloride Carbon Dioxide Anion Gap BUN Creatinine Estim Creat Clear Calc Est GFR (MDRD) Af Amer Est GFR (MDRD) Non-Af BUN/Creatinine Ratio Glucose Lactic Acid 1.6 Calcium Troponin I - Rhythm Strip Rate: 97 Ectopy: None - EKG Initial EKG Interpretation: Sinus Rhythm, - - Sinus rhythm at a rate of 97Normal intervalsNormal axisNormal ST segments Treatment - Dyspnea: Oxygen Repeat Evaluation: Improved With Ambulation: Asymptomatic - Medical Decision Making Patient is evaluated for progressive worsening shortness of breath and difficulty breathing. She appears nontoxic but uncomfortable. Patient is mildly tachycardic on arrival. She was recently tested for coronavirus which was negative. Results are available in our computer.She has a mild leukocytosis of 11.2. Her BMP is relatively unremarkable and her troponin is negative. Her lactate is normal at 1.6. I did check a d-dimer given her shortness of breath and subsequent normal work-ups before. It is mildly elevated at 0.57. Chest x-ray shows a questionable mass versus consolidation in the left upper lobe. CTA of the chest does not show any PE and further characterizes the left upper lobe as an infiltrate as well as multifocal infiltrates on the right. Patient clinically and radiographically has pneumonia. She is ambulating emergency room and is relatively asymptomatic and her O2 saturation does not drop below 95%. Patient states she has a note pulse oximeter at home and is comfortable monitoring her O2 saturation at home. She is comfortable going home with a change in her antibiotics. I do not think Bactrim is sufficient to cover for her pneumonia. She will be switched to azithromycin and doxycycline. Patient is counseled that there is a chance she could get worse and might need to return the emergency room especially if she has worsening hypoxia. She verbalizes agreement understanding with this plan. Patient is counseled on signs and symptoms requiring return to the emergency room. Patient verbalizes agreement and understand this plan. Patient discharged home in stable and improved condition. ED Disposition - Plan for ED Patient: Disposition: Home or Assisted Living Diagnosis: Multifocal pneumonia Instructions: ED PNEUMONITIS Adult Prescriptions: Azithromycin 250 mg PO DAILY #4 tab Transmission Status: Pending to [id number] Doxycycline 100 mg PO BID #10 cap Transmission Status: [id number] Referrals: Mahsa Lira MD [Primary Care Provider] - Additional Instructions: Stop taking the Bactrim and start taking the new medications prescribed to you tomorrow morning. You were given your first dose tonight. Please return to the emergency room if you have worsening symptoms or if your pulse ox goes below 90%. Please follow-up with your primary care doctor later this week. Your coronavirus test was negative and likely your symptoms are from pneumonia however be aware that there is still a small chance she could have coronavirus and have a false negative result.
[2019-08-06] MEDS: Doxycycline 100 MG CAPSULE PO (17:58)
[2019-08-06] MEDS: Azithromycin 250 MG Tablet 500 MG PO (17:58)
== END 2019-08-06 18:11 | disposition home or self-care (01) ==
PROVIDERS: Emergency Provider Emergency Medicine; PCP Internal Medicine
DX: J18.9 Pneumonia, unspecified organism (principal); J45.909 Unspecified asthma, uncomplicated; R00.0 Tachycardia, unspecified; Z88.1 Allergy status to other antibiotic agents; Z88.0 Allergy status to penicillin; Z90.710 Acquired absence of both cervix and uterus
CPT/HCPCS: 71046; 71275; 80048; 83605; 84484; 85025; 85379; 93005; 96360; 96361; 99284; J7030; Q9967; A4216

== ENCOUNTER 2020-11-22 09:00 | Emergency (ER) | payer OTHER, SELFPAY ==
[2020-11-22 09:01] VITALS: BP 126/83; PULSE 109; RESP 20; TEMP 36.3; O2SAT 95; BMI 34.4
--- NOTE | 2020-11-22 09:30 | EX.ED.DYSGE1 ---
HPI History of Present Illness Chief Complaint: General Illness Informant: patient Narrative Narrative: 45-year-old female presents to the emergency room with fatigue. Patient was diagnosed with COVID-19 on Wednesday. She developed fever on Wednesday but notes that she did have a runny nose and sore throat few days before that. She states that last night she suddenly felt extremely fatigued. She states she has been drinking lots of fluids and is worried about dehydration. She denies any chest pain. She does note cough. No change in her breathing. She is an asthmatic and has been giving herself breathing treatments every 4 hours. She is also been taking Tylenol every 4-6 hours. (We did discuss Tylenol limits per day). [facility] Medical History Asthma Home Medications albuterol sulfate [Ventolin HFA] 1 - 2 puff INHALATION Q4H PRN PRN 05/28/16 [History Last Taken Unknown] azithromycin 250 mg PO DAILY #4 tab 08/06/19 [Rx Last Taken Unknown] doxycycline monohydrate 100 mg PO BID #10 cap 08/06/19 [Rx Last Taken Unknown] dexamethasone 6 mg PO DAILY #5 tab 11/22/20 [Rx Last Taken Unknown] Allergy/AdvReac Type Severity Reaction Status Date / Time Penicillins Allergy Rash Verified 07/25/19 15:07 erythromycin base AdvReac Unknown Verified 07/25/19 15:07 [Erythromycin Base] Social History (Updated 11/22/20 @ 09:[address] Mohan Welsh DO) Smoking Status: Never smoker substance use type: does not use ROS ROS ED ROS Narrative Generalized fatigue Constitutional Constitutional ED: Reports chills, fever(s) and sweats; Denies weight loss Eyes Eyes: Denies change in vision or diplopia ENT ENT ED: Reports rhinorrhea and sore throat; Denies ear pain Cardiovascular Cardiovascular: Denies chest pain, orthopnea, palpitations or racing heartbeat Respiratory/Chest Respiratory/Chest: Reports cough; Denies dyspnea or orthopnea Gastrointestinal Gastrointestinal: Reports diarrhea and nausea; Denies abdominal pain or vomiting Genitourinary Genitourinary ED: Denies dysuria, hematuria or urinary frequency Musculoskeletal Musculoskeletal: Reports myalgias; Denies arthralgias Integumentary Denies abscess or rash Neurologic Neurologic: Reports headache(s); Denies weakness Psychiatric Psychiatric: Denies anxiety, depression, suicidal ideation or suicidal thoughts Endocrine Endocrinology: Denies polydipsia, polyphagia or polyuria Allergic/Immunologic Allergic/Immunologic ED: Denies mouth swelling, tongue swelling or urticaria EXAM Physical Exam Const Vital Signs: 11/22/20 09:01 Temperature 97.4 F L Temperature Source Temporal Pulse Rate 109 H Respiratory Rate 20 H Blood Pressure 126/83 H Blood Pressure Mean 97 Pulse Ox 95 Oxygen Delivery Method Room Air Positive well nourished and well developed General Appearance ED: well developed HEENT Reports normocephalic, head/scalp atraumatic and moist mucous membranes Eyes PERRL and EOMs intact bilaterally Neck no lymphadenopathy, supple and no JVD Resp normal respiratory effort and clear to auscultation bilaterally Cardio regular rate, regular rhythm and no murmurs GI normal to inspection, nondistended, normoactive bowel sounds and non-tender Palpation: soft Back/Spine no CVA tenderness and normal ROM Extremity normal to inspection General Extremety ED: Negative for edema General Extremity: Negative for edema Neuro oriented x3 and CN's II-XII intact bilaterally Sensorium / Orientation: alert Motor Exam: strength 5/5 throughout Psych mental status grossly normal Mood & Affect: Negative for depressed or tearful Skin no rashes or lesions noted and no wounds MDM MDM MDM Narrative Medical decision making narrative: Patient's heart rate on my examination is 82. Clinically I don't think the patient is required hospitalization. I don't believe she is having any pulmonary embolism or clotting disorders. Patient clinically appears well. I will write her to have some dexamethasone due to her asthma. Continue home care. Discharge Plan Triage Chief Complaint: General Illness ED Provider: Mohan Welsh Dx/Rx/DC Orders Clinical Impression: COVID-19 Instructions: Coronavirus Disease 2019 (COVID-19): Caring for Yourself or Others Prescriptions: New dexamethasone 6 MG tablet 6 mg PO DAILY Qty: 5 RF: 0 No Action albuterol sulfate [Ventolin HFA] 1 INHALER inhaler 1 - 2 puff inhalation Q4H PRN PRN (Reason: Sob &/Or Wheezing) RF: 0 azithromycin 250 MG tablet 250 mg PO DAILY Qty: 4 RF: 0 doxycycline monohydrate 100 MG capsule 100 mg PO BID Qty: 10 RF: 0 Primary Care Provider: Mahsa Lira Referrals: Mahsa Lira MD [Primary Care Provider] - As Needed Disposition Disposition: Home, Self Care
== END 2020-11-22 09:55 | disposition home or self-care (01) ==
LOC: ED 09:48
PROVIDERS: Emergency Provider Emergency Medicine; PCP Internal Medicine
DX: U07.1 COVID-19 (principal); J45.909 Unspecified asthma, uncomplicated; R19.7 Diarrhea, unspecified; Z79.52 Long term (current) use of systemic steroids
CPT/HCPCS: 99282

== ENCOUNTER 2020-11-23 12:48 | Inpatient (IN) | payer OTHER, SELFPAY ==
[2020-11-23] VITALS (9 sets, daily range): BP systolic 98–139; BP diastolic 77–89; PULSE 102–129; RESP 18–28; TEMP 35.9–37.1; O2SAT 89–95; BMI 33.9; BMI 34.2
--- NOTE | 2020-11-23 13:16 | CT_ITS ---
HISTORY: Dyspnea, chest tightness, Covid EXAMINATION: CTA Chest WO/W Contrast Injection TECHNIQUE: Helically acquired images were obtained of the chest following IV contrast as per pulmonary angiogram protocol with 3D reconstructions. A radiation dose optimization technique was used for this scan. IV Contrast dosage and agent: I100mL Isovue-370 COMPARISON: 08/06/19 the diffuse FINDINGS: LUNGS, PLEURA AND LARGE AIRWAYS: Bilateral lower lobe consolidations, left side greater than right with scattered bilateral and peripheral groundglass and alveolar air space opacities with regions of septal prominence. No pleural effusion or pneumothorax. THYROID: No thyroid lesions. PULMONARY ARTERIES: Normal in caliber. No pulmonary embolism. AORTA AND GREAT VESSELS: No aneurysm or dissection. HEART AND PERICARDIUM: Heart size is normal. No pericardial effusion. RV to LV ratio measures less than 1. MEDIASTINUM AND INA: No mediastinal or hilar adenopathy. Esophagus is unremarkable. No hiatal hernia. UPPER ABDOMEN: No acute pathology. BONES: No acute or aggressive abnormality. CT/CTA Chest W/WO Contrast IMPRESSION: Negative CTA Chest. Pulmonary findings consistent with pneumonia including atypical or viral pneumonia. Individualized dose optimization techniques were used for this CT. at 1539 Reported and signed by: Hernán James MD Electronically Signed: Hernán James MD at 15:38 EDT Tel , Service support ,
[2020-11-23 13:51] LABS: Absolute Lymphocyte Count 0.61 X10^3/uL (0.83-4.51); Absolute Neutrophil Count 5.6 X10^3/uL (2.0-7.7); Basophil# 0.01 X10^3/uL; Basophil% 0.2 % (0-1); Hematocrit 45.4 % (37-47); Hemoglobin 15.1 g/dL (12.0-15.0); Lymphocyte # 0.61 X10^3/ul (0.83-4.51); Lymphocyte % 9.2 % (19-41); Mean Corp Hgb Conc 33.3 g/dL (32-36); Mean Corpuscular Hgb 29.9 pg (27.0-32.0); Mean Corpuscular Volume 89.9 fL (81-99); Mean Platelet Vol. 10.7 fl (6.2-12.0); Monocyte# 0.42 X10^3/uL; Monocyte% 6.3 % (0-10); NRBC Flagged by Analyzer 0 % (0-5); Neutrophil # 5.58 X10^3/uL (2.7-7.7); Neutrophil % 83.7 % (47-70); Platelet Count 212 K/mm3 (150-450); RBC Distribution Width CV 12.1 % (11.6-14.6); RBC Distribution Width SD 40.3 fl (35.1-43.9); Red Blood Count 5.05 M/mm3 (4.2-5.4); White Blood Count 6.7 K/mm3 (4.4-11.0)
[2020-11-23 14:07] LABS: ALB/GLOB Ratio 0.7 RATIO (0.9-2.4); AST(SGOT) 53 U/L (15-37); Alanine Aminotransfer ALT/SGPT 35 U/L (13-56); Albumin, Serum 3.1 g/dL (3.2-5.0); Alkaline Phosphatase 109 U/L (45-117); Anion Gap 9 (5-15); BUN 16 mg/dL (7-18); BUN/Creat Ratio 18.5 RATIO (10-20); Calcium,Total 8.6 mg/dL (8.5-10.1); Chloride 98 mmol/L (98-107); Creatinine, Serum 0.87 mg/dL (0.55-1.02); EST Glomerular Filtration Rate 75 mL/min (>60); Est Glom Filt Rate - Afr Amer 91 mL/min (>60); Estimated Creatinine Clearance 77.25 ml/min; Globulin 4.7 g/dL (2.2-4.2); Glucose 115 mg/dL (74-106); Potassium 3.6 mmol/L (3.5-5.1); Protein, Total 7.8 g/dL (6.4-8.2); Sodium Level 134 mmol/L (136-145); Troponin-I HS 5 pg/mL (3.0-54.0)
[2020-11-23 15:22] LABS: Bacteria 0 SEEN /hpf (None Seen); Mucous, Urine 0 SEEN /hpf (<or=2+); Red Blood Cells-Urine 0 SEEN /hpf (0-5); White Blood Cells 0 SEEN /hpf (0-5)
[2020-11-23 15:25] LABS: Color, Urine Yellow (Yellow); Glucose, Dipstick Normal (Normal); Ketone-Dipstick Negative (Negative); Leukocyte Esterase-Dipstick Negative /ul (Negative); Nitrite-Dipstick Negative (Negative); Occult Blood-Urine Negative /ul (Negative); Protein-Dipstick 15 mg/dl (Negative); Specific Gravity, Urine 1.005 (1.002-1.030); Urine Bilirubin Dipstick Negative (Negative); Urine Clarity Clear (Clear); Urine Urobilinogen Normal (Normal)
--- NOTE | 2020-11-23 15:53 | ED.VIS.DYS ---
HPI History of Present Illness Chief Complaint: Shortness of Breath Narrative Narrative: Patient was recently diagnosed with Covid, she continues to get worse. She has a history of asthma, she has been on Decadron. She is presenting today with some chest pain shortness of breath without any pleuritic component, and generalized weakness, she feels her heart racing. [facility] Medical History Asthma Home Medications albuterol sulfate [Ventolin HFA] 1 - 2 puff INHALATION Q4H PRN PRN 05/28/16 [History Last Taken Unknown] dexamethasone 6 mg PO DAILY #5 tab 11/22/20 [Rx Last Taken Unknown] beclomethasone dipropionate [Qvar] 40 mcg INHALATION BID 11/23/20 [History Last Taken Unknown] montelukast [Singulair] 10 mg PO QHS 11/23/20 [History Last Taken Unknown] Allergy/AdvReac Type Severity Reaction Status Date / Time Penicillins Allergy Rash Verified 11/23/20 12:49 erythromycin base AdvReac Unknown Verified 11/23/20 12:49 [Erythromycin Base] Social History (Updated 11/22/20 @ 09:[address] Mohan Welsh, ) Smoking Status: Never smoker substance use type: does not use ROS ROS ED ROS Narrative Past medical history: Reviewed, includes asthma Medications: Reviewed Social history: Noncontributory Review of systems: All systems negative except as indicated General: No current fever. Eyes: No visual changes ENT: Some cough and congestion Neck: No neck pain Cardiovascular: No chest pain Respiratory: Shortness of breath as in HPI Gastrointestinal: No abdominal pain, nausea vomiting or diarrhea Genitourinary: No dysuria Musculoskeletal: Generalized myalgias Skin: No rash Neurological: No memory loss, confusion or any focal weakness Psych: No recent behavioral changes Hematologic: No easy bleeding or easy bruising EXAM Physical Exam Narrative Exam Narrative: Physical exam General: Patient appears in some distress Head: Normocephalic, Atraumatic Eyes: Conjunctiva not pale ENT: Moist mucous membranes Neck: Supple, Nontender, No lymphadenopathy Cardiovascular: Regular tachycardia no obvious murmur Respiratory: She is tachypneic, her lungs are mostly clear except for scant end expiratory wheezing Abdomen: Soft, Nontender, Nondistended Back: Nontender, Normal Inspection. Negative for: CVA tenderness Extremities: Nontender, No edema Skin: Normal color, No rash Neurological: Alert, Normal Strength, Normal Sensation Psychological: Normal affect Const Vital Signs: 11/23/20 12:49 11/23/20 13:36 11/23/20 13:38 Temperature 96.6 F L Temperature Source Temporal Pulse Rate 129 H 113 H Respiratory Rate 22 H 26 H Respiratory Effort Short of Breath Respiratory Pattern Tachypnea Blood Pressure 124/89 H Blood Pressure Mean 100 Pulse Ox 94 92 Oxygen Delivery Method Room Air Room Air 11/23/20 15:00 Temperature Temperature Source Pulse Rate 113 H Respiratory Rate 28 H Respiratory Effort Respiratory Pattern Blood Pressure 119/81 H Blood Pressure Mean 93 Pulse Ox 89 Oxygen Delivery Method Room Air MDM MDM MDM Narrative Medical decision making narrative: Patient has no PE on CT angiogram, she does have infiltrates consistent with COVID-19. She is hypoxic and tachycardic I will admit her. I did not give her Decadron in the ED since she has been on Decadron at home. She can get remdesivir inpatient. Lab Data Labs: Laboratory Results - last 24 hr 11/23/20 11/23/20 11/23/20 13:30 13:30 15:18 WBC 6.7 RBC 5.05 Hgb 15.1 H Hct 45.4 MCV 89.9 MCH 29.9 MCHC 33.3 RDW Std Deviation 40.3 RDW Coeff of Clara 12.1 Plt Count 212 MPV 10.7 Immature Gran % (Auto) 0.600 Neut % (Auto) 83.7 H Lymph % (Auto) 9.2 L [place] % (Auto) 6.3 Eos % (Auto) 0.0 Baso % (Auto) 0.2 Absolute Neuts (auto) 5.6 Absolute Lymphs (auto) 0.61 L Nucleated RBC % 0 Sodium 134 L Potassium 3.6 Chloride 98 Carbon Dioxide 27.0 Anion Gap 9 BUN 16 Creatinine 0.87 Estim Creat Clear Calc 77.25 Est GFR (MDRD) Af Amer 91 Est GFR (MDRD) Non-Af 75 BUN/Creatinine Ratio 18.5 Glucose 115 H Calcium 8.6 Total Bilirubin 0.50 AST 53 H ALT 35 Alkaline Phosphatase 109 Troponin I High Sens 5 Total Protein 7.8 Albumin 3.1 L Globulin 4.7 H Albumin/Globulin Ratio 0.7 L Urine Color Yellow Urine Clarity Clear Urine pH 7.0 Ur Specific [place] 1.005 Urine Protein 15 H Urine Glucose (UA) Normal Urine Ketones Negative Urine Occult Blood Negative Urine Nitrite Negative Urine Bilirubin Negative Urine Urobilinogen Normal Ur Leukocyte Esterase Negative Radiography Diagnostic Testing: Radiology Impression Chest CTA 11/23/20 13:16 IMPRESSION: Negative CTA Chest. Pulmonary findings consistent with pneumonia including atypical or viral pneumonia. Individualized dose optimization techniques were used for this CT. at 1539 Reported and signed by: Hernán James MD Electronically Signed: Hernán James MD at 15:38 EDT Tel , Service support , Discharge Plan Triage Chief Complaint: Shortness of Breath ED Provider: Oneal Garibay Dx/Rx/DC Orders Clinical Impression: COVID-19, Hypoxia Prescriptions: No Action albuterol sulfate [Ventolin HFA] 1 INHALER inhaler 1 - 2 puff inhalation Q4H PRN PRN (Reason: Sob &/Or Wheezing) RF: 0 dexamethasone 6 MG tablet 6 mg PO DAILY Qty: 5 RF: 0 montelukast [Singulair] 10 mg Tablet 10 mg PO QHS RF: 0 Qvar 40 mcg/actuation Aerosol 40 mcg INHALATION BID RF: 0 Primary Care Provider: Mahsa Lira Referrals: Mahsa Lira MD [Primary Care Provider] - Disposition Disposition: Acute Care Hospital [facility]
[2020-11-23 15:54] LABS: Squamous Epithelial Cells - UA 0-5 SEEN /hpf (5-10)
--- NOTE | 2020-11-23 15:54 | HP.PCM.HOS_ITS ---
HPI - General HPI Narrative JESICA RIGGS, is a 45 F with a PMH as outlined who presents via the ED on 11/23/2020 with a complaint of shortness of breaht. She was diagnosed wtih covid 2 days ago. She is unvaccinated. She was seen in the ED 1 day ago and sent home on p.o. prednisone. However his shortness of breath worsened so she came into the ED. Vitals showed blood pressure of 119/81, pulse rate of 113, respiratory rate of 28 and she was saturating at 89% on room air. CBC showed hemoglobin of 15.1 with WBC of 6.7 and platelets of 212. Chemistry showed sodium of 134 but was otherwise unremarkable. Urinalysis was unremarkable. D-dimer was elevated at 0.57 but CTA of the chest done was negative for PE and showed bilateral lower l obe consolidations with the left side greater than right with scattered bilateral and peripheral groundglass and alveolar airspace opacities. She has been admitted to be managed for acute hypoxic respiratory failure due to COVID- 19 pneumonia [facility] Medical History Asthma Home Medications albuterol sulfate [Ventolin HFA] 1 - 2 puff INHALATION Q4H PRN PRN 05/28/16 [History Last Taken Unknown] dexamethasone 6 mg PO DAILY #5 tab 11/22/20 [Rx Last Taken Unknown] beclomethasone dipropionate [Qvar] 40 mcg INHALATION BID 11/23/20 [History Last Taken Unknown] montelukast [Singulair] 10 mg PO QHS 11/23/20 [History Last Taken Unknown] Allergy/AdvReac Type Severity Reaction Status Date / Time Penicillins Allergy Rash Verified 11/23/20 12:49 erythromycin base AdvReac Unknown Verified 11/23/20 12:49 [Erythromycin Base] Social History (Updated 11/22/20 @ 09:[address] Mohan Welsh DO) Smoking Status: Never smoker substance use type: does not use ROS Review of Systems ROS Unobtainable: Denies due to encephalopathy Constitutional Constitutional: Reports fatigue, malaise and weakness; Denies anorexia, chills or fever(s) Eyes Eyes: Denies change in vision ENT HEENT: Denies dysphagia, headache(s), nasal discharge or sore throat Cardiovascular Cardiovascular: Reports dyspnea on exertion and paroxysmal nocturnal dyspnea; Denies chest pain, edema, lightheadedness, orthopnea, palpitations, rapid heart rate or syncope Respiratory/Chest Respiratory/Chest: Reports cough, dyspnea, productive cough, shortness of breath at rest and shortness of breath with exertion; Denies excessive phlegm production, hemoptysis or wheezing Gastrointestinal Gastrointestinal: Denies abdominal pain, constipation, diarrhea, nausea or vomiting Genitourinary Genitourinary: Denies burning urination, dysuria or urinary frequency Musculoskeletal Musculoskeletal: Denies arthralgias, joint pain or joint swelling Neurologic Neurologic: Denies confusion, dizziness, focal weakness, headache(s), numbness, seizures or syncope Psychiatric Psychiatric: Denies anxiety or depression Endocrine Endocrinology: Denies change in body appearance Hematologic/Lymphatic Hematologic/Lymphatic: Denies anemia Allergic/Immunologic Allergic/Immunologic: Reports asthma Vital Signs Vital Signs Vital Signs: 11/23/20 12:49 11/23/20 13:36 11/23/20 13:38 Temperature 96.6 F L Temperature Source Temporal Pulse Rate 129 H 113 H Respiratory Rate 22 H 26 H Respiratory Effort Short of Breath Respiratory Pattern Tachypnea Blood Pressure 124/89 H Blood Pressure Mean 100 Pulse Ox 94 92 Oxygen Delivery Method Room Air Room Air 11/23/20 15:00 Temperature Temperature Source Pulse Rate 113 H Respiratory Rate 28 H Respiratory Effort Respiratory Pattern Blood Pressure 119/81 H Blood Pressure Mean 93 Pulse Ox 89 Oxygen Delivery Method Room Air Weight Weight: 210 lb Body Mass Index (BMI) 33.9 Physical Exam Const alert, oriented x3 and no apparent distress General Appearance: cooperative HEENT normocephalic, head/scalp atraumatic, hearing grossly normal bilaterally and moist oral mucous membranes Eyes PERRL, EOMs intact bilaterally and conjunctivae normal Neck no lymphadenopathy, supple, no JVD and no carotid bruits Resp Resp Narrative: tachypneic, tachycardic, on room air, saturating at 89% on room air. Has diminished breath sounds bibasally, no wheezes or crackles. Cardio regular rhythm, S1 normal heart sound, S2 normal heart sound and no murmurs Cardio Narrative: tachypneic GI normal to inspection, nondistended, normoactive bowel sounds, soft to palpation, non-tender and non-distended Extremity normal to inspection, full ROM and no clubbing, cyanosis or edema Peripheral Pulses: Yes pulses 2+ throughout Skin no rashes or lesions noted Neuro oriented x3, CN's II-XII intact bilaterally and moves all extremities Sensorium / Orientation: awake and alert Psych affect normal Results Lab / Micro Data Result Diagrams: 11/23/20 13:30 11/23/20 13:30 Labs: Laboratory Results - last 24 hr 11/23/20 13:30: WBC 6.7, RBC 5.05, Hgb 15.1 H, Hct 45.4, MCV 89.9, MCH 29.9, MCHC 33.3, RDW Std Deviation 40.3, RDW Coeff of Clara 12.1, Plt Count 212, MPV 10.7, Immature Gran % (Auto) 0.600, Neut % (Auto) 83.7 H, Lymph % (Auto) 9.2 L, [place] % (Auto) 6.3, Eos % (Auto) 0.0, Baso % (Auto) 0.2, Absolute Neuts (auto) 5.6, Absolute Lymphs (auto) 0.61 L, Nucleated RBC % 0 11/23/20 13:30: Sodium 134 L, Potassium 3.6, Chloride 98, Carbon Dioxide 27.0, Anion Gap 9, BUN 16, Creatinine 0.87, Estim Creat Clear Calc 77.25, Est GFR (MDRD) Af Amer 91, Est GFR (MDRD) Non-Af 75, BUN/Creatinine Ratio 18.5, Glucose 115 H, Calcium 8.6, Total Bilirubin 0.50, AST 53 H, ALT 35, Alkaline Phosphatase 109, Troponin I High Sens 5, Total Protein 7.8, Albumin 3.1 L, Globulin 4.7 H, Albumin/Globulin Ratio 0.7 L 11/23/20 15:18: Urine Color Yellow, Urine Clarity Clear, Urine pH 7.0, Ur Speci fic [place] 1.005, Urine Protein 15 H, Urine Glucose (UA) Normal, Urine Ketones Negative, Urine Occult Blood Negative, Urine Nitrite Negative, Urine Bilirubin Negative, Urine Urobilinogen Normal, Ur Leukocyte Esterase Negative, Urine RBC 0 SEEN, Urine WBC 0 SEEN, Ur Squamous Epith Cells 0-5 SEEN, Urine Bacteria 0 SEEN, Urine Mucus 0 SEEN Radiology Impression Chest CTA 11/23/20 13:16 IMPRESSION: Negative CTA Chest. Pulmonary findings consistent with pneumonia including atypical or viral pneumonia. Individualized dose optimization techniques were used for this CT. at 1539 Reported and signed by: Hernán James MD Electronically Signed: Hernán James MD at 15:38 EDT Tel , Service support , Assessment & Plan Assessment/Plan (1) COVID-19: (2) Hypoxia: PLAN: #Acute hypoxic respiratory insufficiency due to COVID 19 infection * admit to PCU; diagnosed on November 18. * started on decadron yesterday. continue on decadron 6mg daily * start on remdesivir * breathing treatment with bronchodilators. * titrate oxygen to maintain sats >90% * #SIRS criteria * patient is tachypneic and tachycardic * likely due to COVID 19 infection. * hold off on any sepsis workup for now as symptoms can be explained by covid. * #History of asthma * breathing treatment with bronchodilators * continue montelukast. * DVT prophylaxis: lovenox Code status: full code * patient counseled about difference between full code, DNRCC and DNRCCA. Patient says she would want to have CPR if needed, but wants to discuss with her about whether she should be intubated. Will put in code status as full code for now. * Total face to face time: 17 mins Charges/Coding Visit Charges Inpatient E&M: 30712 Init Hosp L3 Procedures Hospitalists Procedures: 72598 Advncd Care Plan 30 Min
[2020-11-23] MEDS: Albuterol 2.5 MG/3 ML VIAL.NEB. INHALATION (17:29)
[2020-11-23] MEDS: 0.9% Normal Saline 1,000 ML 150 ML IV (18:42)
[2020-11-23 18:49] LABS: Alkaline Phosphatase 111 U/L (45-117)
[2020-11-23 18:52] LABS: BNP,B-Type NATRIURETIC PEPTIDE 8.7 pg/mL (0-100)
[2020-11-23 20:18] LABS: Prothrombin Time (Protime)PT. 12.7 SECONDS (11.7-14.9)
[2020-11-23] MEDS: Acetaminophen 325 MG Tablet 650 MG PO (20:26)
[2020-11-23] MEDS: Enoxaparin 30 MG/0.3 ML Syringe SC (20:26)
[2020-11-23] MEDS: Montelukast 10 MG Tablet PO (20:26)
[2020-11-24] VITALS (16 sets, daily range): BP systolic 125–145; BP diastolic 76–90; PULSE 73–104; RESP 18–20; TEMP 36.6–37.1; O2SAT 91–119
[2020-11-24] MEDS: Budesonide Respules 0.5 MG/2 ML AMPUL.NEB. INHALATION ×2 (05:00→19:41)
[2020-11-24] MEDS: Ipratropium/Albuterol Sulfate 3 ML AMPUL.NEB INHALATION ×4 (05:00→19:41)
[2020-11-24] MEDS: 0.9% Normal Saline 1,000 ML 150 ML IV (05:06)
[2020-11-24] MEDS: Acetaminophen 325 MG Tablet 650 MG PO (05:17)
[2020-11-24 07:29] LABS: Absolute Lymphocyte Count 0.91 X10^3/uL (0.83-4.51); Absolute Neutrophil Count 4.9 X10^3/uL (2.0-7.7); Hematocrit 37.9 % (37-47); Hemoglobin 12.4 g/dL (12.0-15.0); Lymphocyte # 0.91 X10^3/ul (0.83-4.51); Lymphocyte % 14.8 % (19-41); Mean Corp Hgb Conc 32.7 g/dL (32-36); Mean Corpuscular Hgb 30.2 pg (27.0-32.0); Mean Corpuscular Volume 92.4 fL (81-99); Mean Platelet Vol. 10.2 fl (6.2-12.0); Monocyte# 0.32 X10^3/uL; Monocyte% 5.2 % (0-10); NRBC Flagged by Analyzer 0 % (0-5); Neutrophil # 4.85 X10^3/uL (2.7-7.7); Neutrophil % 79.2 % (47-70); Platelet Count 219 K/mm3 (150-450); RBC Distribution Width CV 12.5 % (11.6-14.6); RBC Distribution Width SD 42.5 fl (35.1-43.9); White Blood Count 6.1 K/mm3 (4.4-11.0)
[2020-11-24 08:20] LABS: ALB/GLOB Ratio 0.6 RATIO (0.9-2.4); AST(SGOT) 81 U/L (15-37); Alanine Aminotransfer ALT/SGPT 46 U/L (13-56); Albumin, Serum 2.5 g/dL (3.2-5.0); Alkaline Phosphatase 92 U/L (45-117); Anion Gap 7 (5-15); BUN 17 mg/dL (7-18); BUN/Creat Ratio 31.4 RATIO (10-20); Calcium,Total 7.6 mg/dL (8.5-10.1); Chloride 103 mmol/L (98-107); Creatinine, Serum 0.54 mg/dL (0.55-1.02); EST Glomerular Filtration Rate 129 mL/min (>60); Est Glom Filt Rate - Afr Amer 157 mL/min (>60); Estimated Creatinine Clearance 124.46 ml/min; Globulin 4.1 g/dL (2.2-4.2); Glucose 106 mg/dL (74-106); Potassium 3.7 mmol/L (3.5-5.1); Protein, Total 6.6 g/dL (6.4-8.2); Sodium Level 137 mmol/L (136-145)
[2020-11-24] MEDS: dexAMETHasone 10 MG/ML Vial 6 MG IV (08:50)
[2020-11-24] MEDS: Enoxaparin 30 MG/0.3 ML Syringe SC ×2 (08:50→21:06)
[2020-11-24] MEDS: 0.9% Saline Lock 10 ML Syringe IV ×2 (08:50→21:08)
--- NOTE | 2020-11-24 10:36 | PN.HOSP_ITS ---
Subjective Subjective Patient seen and examined. She does feel a bit short of breath today with mild wheezing but otherwise has no complaints. Review of symptoms otherwise negative. Her oxygen requirements had increased to 5 L of oxygen at the time of review. She has otherwise remained hemodynamically stable. Objective Data Objective Data Vital Signs: Vital Signs Temp Pulse Resp BP Pulse Ox 98.7 F 95 18 125/77 H 91 11/24/20 08:55 11/24/20 08:55 11/24/20 08:55 11/24/20 08:55 11/24/20 08:55 Oxygen Flow Rate (L/min) 3 Oxygen Delivery Method Nasal Cannula Weight: 212 lb 4.8 oz Body Mass Index (BMI) 34.2 Intake & Output: Intake and Output for Last 24 Hours 11/22/20 11/23/20 11/24/20 23:59 23:59 23:59 Intake Total 1010 / 1010 1340 / 1340 Balance 1010 / 1010 1340 / 1340 Lab / Micro Data Result Diagrams: 11/24/20 07:05 11/24/20 07:05 Labs: Laboratory Results - last 24 hr 11/23/20 13:30: WBC 6.7, RBC 5.05, Hgb 15.1 H, Hct 45.4, MCV 89.9, MCH 29.9, MCHC 33.3, RDW Std Deviation 40.3, RDW Coeff of Clara 12.1, Plt Count 212, MPV 10.7, Immature Gran % (Auto) 0.600, Neut % (Auto) 83.7 H, Lymph % (Auto) 9.2 L, [place] % (Auto) 6.3, Eos % (Auto) 0.0, Baso % (Auto) 0.2, Absolute Neuts (auto) 5.6, Absolute Lymphs (auto) 0.61 L, Nucleated RBC % 0 11/23/20 13:30: Sodium 134 L, Potassium 3.6, Chloride 98, Carbon Dioxide 27.0, Anion Gap 9, BUN 16, Creatinine 0.87, Estim Creat Clear Calc 77.25, Est GFR (MDRD) Af Amer 91, Est GFR (MDRD) Non-Af 75, BUN/Creatinine Ratio 18.5, Glucose 115 H, Calcium 8.6, Total Bilirubin 0.50, AST 53 H, ALT 35, Alkaline Phosphatase 109, Troponin I High Sens 5, Total Protein 7.8, Albumin 3.1 L, Globulin 4.7 H, Albumin/Globulin Ratio 0.7 L 11/23/20 13:30: Alkaline Phosphatase 111, C-React Prot Ext Range 92.80 H 11/23/20 13:30: B-Natriuretic Peptide 8.7 11/23/20 15:18: Urine Color Yellow, Urine Clarity Clear, Urine pH 7.0, Ur Specific [place] 1.005, Urine Protein 15 H, Urine Glucose (UA) Normal, Urine Ketones Negative, Urine Occult Blood Negative, Urine Nitrite Negative, Urine Bilirubin Negative, Urine Urobilinogen Normal, Ur Leukocyte Esterase Negative, Urine RBC 0 SEEN, Urine WBC 0 SEEN, Ur Squamous Epith Cells 0-5 SEEN, Urine Bacteria 0 SEEN, Urine Mucus 0 SEEN 11/23/20 19:50: PT 12.7, INR 1.0 11/24/20 07:05: WBC 6.1, RBC 4.10 L, Hgb 12.4, Hct 37.9, MCV 92.4, MCH 30.2, MCHC 32.7, RDW Std Deviation 42.5, RDW Coeff of Clara 12.5, Plt Count 219, MPV 10.2, Immature Gran % (Auto) 0.800, Neut % (Auto) 79.2 H, Lymph % (Auto) 14.8 L, [place] % (Auto) 5.2, Eos % (Auto) 0.0, Baso % (Auto) 0.0, Absolute Neuts (auto) 4.9, Absolute Lymphs (auto) 0.91, Nucleated RBC % 0 11/24/20 07:05: Sodium 137, Potassium 3.7, Chloride 103, Carbon Dioxide 27.0, Anion Gap 7, BUN 17, Creatinine 0.54 L, Estim Creat Clear Calc 124.46, Est GFR (MDRD) Af Amer 157, Est GFR (MDRD) Non-Af 129, BUN/Creatinine Ratio 31.4 H, Glucose 106, Calcium 7.6 L, Total Bilirubin 0.60, AST 81 H, ALT 46, Alkaline Phosphatase 92, Total Protein 6.6, Albumin 2.5 L, Globulin 4.1, Albumin/Globulin Ratio 0.6 L Radiography Diagnostic Testing: Radiology Impression Chest CTA 11/23/20 13:16 IMPRESSION: Negative CTA Chest. Pulmonary findings consistent with pneumonia including atypical or viral pneumonia. Individualized dose optimization techniques were used for this CT. at 1539 Reported and signed by: Hernán James MD Electronically Signed: Hernán James MD at 15:38 EDT Tel , Service support , Physical Exam Const alert, oriented x3 and no apparent distress General Appearance: cooperative Exam Limitations: no limitations Nutritional Appearance: obese HEENT normocephalic, head/scalp atraumatic, hearing grossly normal bilaterally and moist oral mucous membranes Head and Scalp: normocephalic Eyes PERRL, EOMs intact bilaterally and conjunctivae normal Neck no lymphadenopathy, supple, no JVD and no carotid bruits Resp Resp Narrative: On 5 L of oxygen. Blood cells reduced bibasilarly. No wheezes or crackles. Cardio regular rate, regular rhythm, S1 normal heart sound, S2 normal heart sound and no murmurs GI normal to inspection, nondistended, normoactive bowel sounds, soft to palpation, non-tender and non-distended Extremity normal to inspection, full ROM and no clubbing, cyanosis or edema Skin no rashes or lesions noted Neuro oriented x3, CN's II-XII intact bilaterally and moves all extremities Sensorium / Orientation: awake and alert Psych affect normal Assessment & Plan Assessment/Plan (1) COVID-19: (2) Hypoxia: PLAN: #Acute hypoxic respiratory insufficiency due to COVID 19 infection * now on 5L of oxygen. * on remdesivir and decadron * breathing treatment with bronchodilators * titrate oxygen to maintain sats >90% * * #SIRS criteria * resolved.' * #History of asthma * breathing treatment with bronchodilators * on montelukast. * DVT prophylaxis: lovenox Code status: full code * Charges/Coding Visit Charges Inpatient E&M: 36121 Subs Hosp L3
[2020-11-24] MEDS: Montelukast 10 MG Tablet PO (21:08)
[2020-11-25] VITALS (16 sets, daily range): BP systolic 118–154; BP diastolic 72–99; PULSE 72–115; RESP 16–22; TEMP 36.6–37.1; O2SAT 91–96
[2020-11-25] MEDS: Ipratropium/Albuterol Sulfate 3 ML AMPUL.NEB INHALATION ×6 (01:12→22:56)
[2020-11-25 06:31] LABS: Absolute Lymphocyte Count 0.95 X10^3/uL (0.83-4.51); Absolute Neutrophil Count 3.7 X10^3/uL (2.0-7.7); Hematocrit 35.5 % (37-47); Hemoglobin 11.8 g/dL (12.0-15.0); Lymphocyte # 0.95 X10^3/ul (0.83-4.51); Lymphocyte % 18.6 % (19-41); Mean Corp Hgb Conc 33.2 g/dL (32-36); Mean Corpuscular Hgb 30.4 pg (27.0-32.0); Mean Corpuscular Volume 91.5 fL (81-99); Mean Platelet Vol. 9.8 fl (6.2-12.0); Monocyte# 0.45 X10^3/uL; Monocyte% 8.8 % (0-10); NRBC Flagged by Analyzer 0 % (0-5); Neutrophil # 3.65 X10^3/uL (2.7-7.7); Neutrophil % 71.6 % (47-70); Platelet Count 253 K/mm3 (150-450); RBC Distribution Width CV 12.5 % (11.6-14.6); RBC Distribution Width SD 41.8 fl (35.1-43.9); Red Blood Count 3.88 M/mm3 (4.2-5.4); White Blood Count 5.1 K/mm3 (4.4-11.0)
[2020-11-25 06:47] LABS: ALB/GLOB Ratio 0.6 RATIO (0.9-2.4); AST(SGOT) 52 U/L (15-37); Alanine Aminotransfer ALT/SGPT 61 U/L (13-56); Albumin, Serum 2.4 g/dL (3.2-5.0); Alkaline Phosphatase 98 U/L (45-117); Anion Gap 7 (5-15); BUN 16 mg/dL (7-18); BUN/Creat Ratio 28.1 RATIO (10-20); Calcium,Total 8.1 mg/dL (8.5-10.1); Chloride 105 mmol/L (98-107); Creatinine, Serum 0.57 mg/dL (0.55-1.02); EST Glomerular Filtration Rate 122 mL/min (>60); Est Glom Filt Rate - Afr Amer 148 mL/min (>60); Estimated Creatinine Clearance 117.91 ml/min; Globulin 4.1 g/dL (2.2-4.2); Glucose 111 mg/dL (74-106); Potassium 3.9 mmol/L (3.5-5.1); Protein, Total 6.5 g/dL (6.4-8.2); Sodium Level 138 mmol/L (136-145)
--- NOTE | 2020-11-25 07:35 | CPS ---
no pulmicort available in pcu accudose
[2020-11-25] MEDS: dexAMETHasone 10 MG/ML Vial 6 MG IV (08:14)
[2020-11-25] MEDS: 0.9% Saline Lock 10 ML Syringe IV ×2 (08:14→22:29)
[2020-11-25] MEDS: Enoxaparin 30 MG/0.3 ML Syringe SC ×2 (08:14→22:31)
--- NOTE | 2020-11-25 12:30 | CASEMGMT ---
RN CM Face to Face with patient for initial transition planning/care coordination assessment. RN CM introduced self and role at [facility]. Patient sitting in chair, alert and oriented. Patient willing to participate in assessment and is able to answer all questions appropriately. Care providers, pharmacy, and demographics verified. Patient wishes to discharge home, denies need for home health at this time. Patient states she has no further needs or concerns at this time. CM to follow for discharge planning needs that may arise. PCP: Soraya Specialists: none Preferred Pharmacy: [facility] Insurance:[facility] Prescription Benefit: yes Living Will/HPOA: none LNOK: Living Arrangements: Patient lives with and children in a 2 story home with bed and bath on first floor. Patient states she is independent at home. Transportation: self, DME/HHC: Patient denies DME or previous HHC. Patient has no preference for DME. Will monitor for need for home oxygen. Disposition Plan: Patient to discharge home with family support and follow-up plans in place. Kasie CASTRO, RN, CM
--- NOTE | 2020-11-25 18:05 | PN.HOSP_ITS ---
Subjective Subjective increased oxygen requirements today Objective Data Objective Data Vital Signs: Vital Signs Temp Pulse Resp BP Pulse Ox 36.6 C 99 18 154/99 H 95 11/25/20 15:48 11/25/20 15:48 11/25/20 15:48 11/25/20 15:48 11/25/20 15:48 Oxygen Flow Rate (L/min) 4 Oxygen Delivery Method Nasal Cannula Weight: 96.298 kg Body Mass Index (BMI) 34.2 Intake & Output: Intake and Output for Last 24 Hours 11/23/20 11/24/20 11/25/20 23:59 23:59 23:59 Intake Total 1010 / 1010 3690 / 3690 700 / 700 Balance 1010 / 1010 3690 / 3690 700 / 700 Lab / Micro Data Result Diagrams: 11/25/20 06:15 11/25/20 06:15 Labs: Laboratory Results - last 24 hr 11/25/20 06:15: WBC 5.1, RBC 3.88 L, Hgb 11.8 L, Hct 35.5 L, MCV 91.5, MCH 30.4, MCHC 33.2, RDW Std Deviation 41.8, RDW Coeff of [place] 12.5, Plt Count 253, MPV 9.8, Immature Gran % (Auto) 1.000 H, Neut % (Auto) 71.6 H, Lymph % (Auto) 18.6 L , [place] % (Auto) 8.8, Eos % (Auto) 0.0, Baso % (Auto) 0.0, Absolute Neuts (auto) 3.7, Absolute Lymphs (auto) 0.95, Nucleated RBC % 0 11/25/20 06:15: Sodium 138, Potassium 3.9, Chloride 105, Carbon Dioxide 26.0, Anion Gap 7, BUN 16, Creatinine 0.57, Estim Creat Clear Calc 117.91, Est GFR (MDRD) Af Amer 148, Est GFR (MDRD) Non-Af 122, BUN/Creatinine Ratio 28.1 H, Glucose 111 H, Calcium 8.1 L, Total Bilirubin 0.40, AST 52 H, ALT 61 H, Alkaline Phosphatase 98, Total Protein 6.5, Albumin 2.4 L, Globulin 4.1, Albumin/Globulin Ratio 0.6 L Physical Exam Const alert Cardio regular rate, regular rhythm, S1 normal heart sound and S2 normal heart sound GI normal to inspection, nondistended, normoactive bowel sounds, soft to palpation, non-tender and non-distended Assessment & Plan Assessment/Plan (1) COVID-19: (2) Hypoxia: PLAN: #Acute hypoxic respiratory insufficiency * due to COVID 19 infection * Did require up to 6 L this morning but was able to be weaned down to 4 * breathing treatment with bronchodilators * titrate oxygen to maintain sats >90% * The patient can continue to improve then could look at potential discharge next 24 to 48 hours but I am concerned for regression given the patient's unvaccinated status. # Acute COVID 19 pneumonia * Onset November 18. Patient need to quarantine through December 07 to complete a 20-day course of quarantine. * Continue with dexamethasone and remdesivir * Unvaccinated * qSOFA score of 1, therefore sepsis ruled out #History of asthma * breathing treatment with bronchodilators * on montelukast. DVT prophylaxis: lovenox Code status: full code * Charges/Coding Visit Charges Inpatient E&M: 72479 Subs Hosp L2
[2020-11-25] MEDS: Budesonide Respules 0.5 MG/2 ML AMPUL.NEB. INHALATION (18:49)
[2020-11-25] MEDS: Montelukast 10 MG Tablet PO (22:34)
[2020-11-26] VITALS (15 sets, daily range): BP systolic 125–155; BP diastolic 76–97; PULSE 73–107; RESP 18–24; TEMP 36.7–36.9; O2SAT 87–97
--- NOTE | 2020-11-26 00:29 | PCS.PANDOC ---
PANDEMIC DOCUMENTATION INITIATED: Date: 10/28/2020 Time: 190
[2020-11-26] MEDS: Ipratropium/Albuterol Sulfate 3 ML AMPUL.NEB INHALATION ×4 (03:07→14:59)
[2020-11-26] MEDS: Budesonide Respules 0.5 MG/2 ML AMPUL.NEB. INHALATION (06:53)
[2020-11-26] MEDS: Enoxaparin 30 MG/0.3 ML Syringe SC (09:15)
[2020-11-26] MEDS: dexAMETHasone 10 MG/ML Vial 6 MG IV (09:16)
--- NOTE | 2020-11-26 10:16 | PCM.DC ---
Discharge Instructions Diet Discharge Diet: No restrictions Activity Discharge Activity: Return to Normal Activity Additional Activity Instructions:: Self isolate for at least 20 days since symptoms began (11/18-12/07/2020) AND at least one day (24 hours) have passed since resolution of fever without the use of fever-reducing agents AND improvement of symptoms (e.g., cough, shortness of breath) When around people in the same room, wear a face mask. Individuals also in the room should wear a mask. If possible, use a different bathroom and bedroom. Perform adequate hand hygiene. Avoid sharing dishes, glasses, etc. Dressing / Incision Call your doctor if your incision/area has: Continuous Slow Oozing Call your doctor if you observe: Fever of 101 or Higher and Shortness of breath Follow Up Care Test Results: Test results from this visit will be discussed in further detail at your follow-up appointment, if applicable. Discharge Plan Admission Admit Date/Time: 11/23/20 17:22 Primary Reason for Your Visit: COVID 19 Attending Provider: Jarrod Bucio Primary Care Provider: Mahsa Lira Instructions Patient Instructions: ED Chest Pain, Noncardiac Discharge Orders/Prescriptions Prescriptions: No Action albuterol sulfate [Ventolin HFA] 1 INHALER inhaler 1 - 2 puff inhalation Q4H PRN PRN (Reason: Sob &/Or Wheezing) RF: 0 dexamethasone 6 MG tablet 6 mg PO DAILY Qty: 5 RF: 0 montelukast [Singulair] 10 mg Tablet 10 mg PO QHS RF: 0 Qvar 40 mcg/actuation Aerosol 40 mcg INHALATION BID RF: 0 Referrals / Follow Up: Mahsa Lira MD [Primary Care Provider] - Within 2 Weeks Disposition Disposition (needs filled in before D/C Order can be placed): Home, Self Care
--- NOTE | 2020-11-26 10:26 | PCM.DC.SUM ---
Providers Date of Admission: 11/23/20 Primary Care Physician: Dr. Mahsa Lira MD Reason For Visit: COVID 19 PNEUMONIA Diagnosis Discharge Diagnosis (1) COVID-19: Status: Acute Code(s): U07.1 - COVID-19 (2) Hypoxia: Status: Acute Code(s): R09.02 - Hypoxemia Medications at Discharge Home Medications albuterol sulfate [Ventolin HFA] 1 - 2 puff INHALATION Q4H PRN PRN 05/28/16 beclomethasone dipropionate 40 mcg INHALATION BID 11/23/20 montelukast [Singulair] 10 mg PO QHS 11/23/20 dexamethasone 6 mg PO DAILY #6 tab 11/26/20 Hospital Course Operations None Procedures None Summary of Care Provided Minutes Spent on Discharge: 32 Hospital Course: #Acute hypoxic respiratory insufficiency due to COVID 19 infection Improving overall. Patient dropped down to 89% on 1 L. Patient will require 2 L continuous nasal cannula. breathing treatment with bronchodilators titrate oxygen to maintain sats >90% # Acute COVID 19 pneumonia Onset November 18. Patient need to quarantine through December 07 to complete a 20-day course of quarantine. Continue with dexamethasone and remdesivir Unvaccinated qSOFA score of 1, therefore sepsis ruled out Patient advised to get the COVID-19 vaccine in 1 to 2 months. #History of asthma breathing treatment with bronchodilators on montelukast. Physical Exam Const alert Resp normal respiratory effort, no retractions, no use of accessory muscles and clear to auscultation bilaterally Cardio regular rate, regular rhythm, S1 normal heart sound and S2 normal heart sound GI normal to inspection, nondistended, normoactive bowel sounds, soft to palpation, non-tender and non-distended Weight / BMI Weight Weight: 96.298 kg Body Mass Index (BMI) 34.2 ABG / Lab / Microbiology Data Result Diagrams: 11/25/20 06:15 11/25/20 06:15 D/C Instructions Discharge Diet: No restrictions Additional Activity Instructions: Self isolate for at least 20 days since symptoms began (11/18-12/07/2020) AND at least one day (24 hours) have passed since resolution of fever without the use of fever-reducing agents AND improvement of symptoms (e.g., cough, shortness of breath) When around people in the same room, wear a face mask. Individuals also in the room should wear a mask. If possible, use a different bathroom and bedroom. Perform adequate hand hygiene. Avoid sharing dishes, glasses, etc. Call your doctor if your incision/area has: Continuous Slow Oozing Call your doctor if you observe: Fever of 101 or Higher and Shortness of breath Meaningful Use Info Meaningful Use Diagnoses (Choose all that apply): None applicable Discharge Plan Admission Admit Date/Time: 11/23/20 17:22 Primary Reason for Your Visit: COVID 19 Attending Provider: Jarrod Bucio Primary Care Provider: Mahsa Lira Instructions Patient Instructions: ED Chest Pain, Noncardiac Discharge Orders/Prescriptions Prescriptions: Continued albuterol sulfate [Ventolin HFA] 1 INHALER inhaler 1 - 2 puff inhalation Q4H PRN PRN (Reason: Sob &/Or Wheezing) RF: 0 montelukast [Singulair] 10 mg Tablet 10 mg PO QHS RF: 0 beclomethasone dipropionate 40 mcg/actuation Aerosol 40 mcg INHALATION BID RF: 0 dexamethasone 6 MG tablet 6 mg PO DAILY Qty: 6 RF: 0 Referrals / Follow Up: Mahsa Lira MD [Primary Care Provider] - Within 2 Weeks (Please call to set up an appointment. ) Disposition Disposition (needs filled in before D/C Order can be placed): Home, Self Care Charges/Coding Visit Charges Inpatient E&M: 71488 Disch Hosp
--- NOTE | 2020-11-26 10:57 | CASEMGMT ---
Pt qualifies for 2L nc continuous home oxygen and states preference for [employer] for home oxygen. Referral faxed to [facility] and call to [employer] to notify of referral/pt discharge, voice understanding. Pt voices no further questions/concerns/needs.
--- NOTE | 2020-11-26 15:01 | CASEMGMT ---
[facility] ED COVID Home O2 Follow-up: This RN LANCE phone pt in follow-up to being discharged with home O2 from the ED. Pt states he had just woken up from a nap. Pt states he is doing ok but was speaking in short sentences. Pt reports his PO to be reading 97% currently and decreased to 92% while speaking. Pt states he has stood for 10-15 minutes while preparing meals and maintained a PO in the 90's. He did note at one time it dropped to 88% with extra exertion but promptly returned to the 90's. Pt states he is continuing to wear O2 at 2l/min. Pt describes taking deep breathes and expanding his lungs to a point he feels like they are itchy and states this often prompts him to have a productive cough. Pt reports eating and drinking without difficulty and states his children are helping with cooking duties. Pt states he did not fill the decadron script and states he is hesisitent due to a previous experience when he was on a steroid and an antibiotic and experienced an reaction. Pt states they were unable to determine which medication caused the reaction so he is hesistent to take the decadron at this time. Encouraged pt to contact his PCP to discuss this issue and provide guidance. Pt states he has not called his PCP yet to schedule a follow-up but states he will. Pt stated he is trying to stay up in a chair but has taken two naps today. Pt asked if taking naps was ok. Educated pt that naps are appropriate and that research has shown lying on his stomach when sleeping may be beneficial. Pt expressed understanding. Pt denied any further questions or concerns. Pt agreeable to a follow-up call tomorrow. Giuliano Astorga RN CM
--- NOTE | 2020-11-27 15:52 | CASEMGMT ---
KEKE LUCAS Discharge Follow-up Phone Call: MENA: Es Strata: 3 Call Date: 11/27/20 Discharge Date:11/26/20 Time of Call: 1550 Admitting Diagnosis: COVID-19, acute hypoxic respiratory failure. This RN CM phoned pt in follow-up to pt's discharge. Pt states she is doing ok and states that she is able to get to the bathroom and back with some difficulty due to SOB but she states she is able do so. Pt states she received her medications and has been taking them as needed including the aerosol tx's every 4 hours and the steroid. Pt did sound SOB on the phone but denied any difficulty breathing and reported her PO to be 95% on 2l/min and 91% with activity. Pt states she is remaining in quarantine and is aware of the 12/07 date. Pt states she has a follow-up appointment with Dr. Lira on 12/02. Pt states she is eating and drinking without difficulty. Pt denies any further questions or concerns at this time. Giuliano Astorga RN CM
--- NOTE | 2020-11-29 14:53 | CASEMGMT ---
KEKE LUCAS Follow-up: Phone call placed to patient in continued follow-up. Pt states she is doing well. States she was able to shower yesterday, continues to wear her O2, and reports her saturations to remain in the 90's even with activity. Pt sounded short of breath on the phone with shortened sentences but pt denies hypoxia or distress. Pt denies any current questions or concerns at this time. Giuliano Astorga RN CM
== END 2020-11-26 17:23 | disposition home or self-care (01) | DRG 177 ==
LOC: ED 15:59 → PCU 17:44
PROVIDERS: Admitting Provider Student in an Organized Health Care Education/Training Program; Emergency Provider Emergency Medicine; PCP Internal Medicine
DX: U07.1 COVID-19 (principal); J12.82 Pneumonia due to coronavirus disease 2019; R09.02 Hypoxemia; R79.89 Other specified abnormal findings of blood chemistry; J45.909 Unspecified asthma, uncomplicated; Z79.899 Other long term (current) drug therapy
CPT/HCPCS: 36415; 71275; 80053; 81001; 83880; 84075; 84484; 85025; 85610; 86140; 94640; 97161; 97166; 97530; 97535; 99284; J7030; J7050; Q9967; A4216

== ENCOUNTER 2020-12-28 12:43 | Emergency (ER) | payer OTHER, SELFPAY ==
[2020-12-28 12:44] VITALS: BP 142/106; PULSE 100; RESP 18; TEMP 36.6; O2SAT 97; BMI 36.3
--- NOTE | 2020-12-28 14:26 | EKG12_ITS ---
Test Reason : SOB Blood Pressure : / mmHG Vent. Rate : 084 BPM Atrial Rate : 084 BPM P-R Int : 162 ms QRS Dur : 108 ms QT Int : 406 ms P-R-T Axes : 054 046 051 degrees QTc Int : 479 ms Normal sinus rhythm Normal ECG Confirmed by DARRON VENCES, PETR ([id number]), electronic news gathering editor MANJINDER ONTIVEROS ([id number]) on 12/31/2020 8:50:47 AM Referred By: KALYN Confirmed By:PETR ROB MD
--- NOTE | 2020-12-28 14:26 | RAD_ITS ---
STUDY: X-RAY CHEST REASON FOR EXAM: Female, 45 years old. SOB -- ED WAITING ROOM TECHNIQUE: Frontal portable view of the chest COMPARISON: 23 November 2020 FINDINGS: There are multifocal ill-defined interstitial opacities bilaterally. There is no pneumothorax, pulmonary edema, pleural effusions or cardiomegaly. Appearance is stable since prior. RAD/Chest 1 View (Portable) IMPRESSION: Covid pneumonia. Stable since prior. Electronically Signed: Cori Fabian MD at 16:29 EDT Tel , Service support ,
[2020-12-28 14:43] LABS: Absolute Lymphocyte Count 2.38 X10^3/uL (0.83-4.51); Absolute Neutrophil Count 5.3 X10^3/uL (2.0-7.7); Basophil# 0.05 X10^3/uL; Basophil% 0.6 % (0-1); Eosinophil# 0.43 X10^3/uL; Eosinophils% 4.9 % (0-5); Hematocrit 40.4 % (37-47); Hemoglobin 13.9 g/dL (12.0-15.0); Lymphocyte # 2.38 X10^3/ul (0.83-4.51); Lymphocyte % 27.4 % (19-41); Mean Corp Hgb Conc 34.4 g/dL (32-36); Mean Corpuscular Hgb 30.9 pg (27.0-32.0); Mean Corpuscular Volume 89.8 fL (81-99); Mean Platelet Vol. 9.7 fl (6.2-12.0); Monocyte# 0.44 X10^3/uL; Monocyte% 5.1 % (0-10); NRBC Flagged by Analyzer 0 % (0-5); Neutrophil # 5.28 X10^3/uL (2.7-7.7); Neutrophil % 60.7 % (47-70); Platelet Count 383 K/mm3 (150-450); RBC Distribution Width CV 13.5 % (11.6-14.6); RBC Distribution Width SD 43.9 fl (35.1-43.9); White Blood Count 8.7 K/mm3 (4.4-11.0)
[2020-12-28 15:03] LABS: Anion Gap 5 (5-15); BUN 13 mg/dL (7-18); BUN/Creat Ratio 16.9 RATIO (10-20); Calcium,Total 8.8 mg/dL (8.5-10.1); Chloride 105 mmol/L (98-107); Creatinine, Serum 0.77 mg/dL (0.55-1.02); EST Glomerular Filtration Rate 87 mL/min (>60); Est Glom Filt Rate - Afr Amer 105 mL/min (>60); Estimated Creatinine Clearance 87.28 ml/min; Glucose 96 mg/dL (74-106); Potassium 3.8 mmol/L (3.5-5.1); Sodium Level 139 mmol/L (136-145); Troponin-I HS 5 pg/mL (3.0-54.0)
--- NOTE | 2020-12-28 15:08 | CT_ITS ---
STUDY: CTA CHEST REASON FOR EXAM: Female, 45 years old. increased SOB, recent COVID RADIATION DOSAGE (If Supplied By Facility): CTDIvol = ( 11.33 ) mGy, DLP = ( 504.63 ) mGycm TECHNIQUE: The examination was performed with the intravenous administration of IV 100mL Isovue-370. Post-processing of the angiographic images was performed, with multiplanar reformation and 3D reconstruction. Individualized dose optimization techniques were used for this CT. COMPARISON: CTA of the chest dated November 24, 2019 FINDINGS: Near complete resolution of previously seen pneumonic infiltrates scattered throughout both lungs with only minimal groundglass edema and interstitial thickening remaining. No pleural effusion is present. Normal enhancement of the main pulmonary artery and right and left pulmonary arteries. Normal enhancement of the bilateral peripheral pulmonary arteries. There is no demonstrated pulmonary embolism. Normal thoracic aorta and visualized great vessels. There is no demonstrated aortic dissection. Normal heart and pericardium. Normal mediastinum. Normal hilar regions. Normal visualized trachea and bronchi. The lungs are well expanded. Normal pleura. Normal chest wall structures. There are degenerative changes of thoracic spine. Unremarkable visualized upper abdomen. Small hiatal hernia noted. CT/CTA Chest W/WO Contrast IMPRESSION: 1. Near complete resolution of previously seen pneumonic infiltrates scattered throughout both lungs with only minimal groundglass edema and interstitial thickening remaining. No pleural effusion is present. 2. No demonstrated pulmonary embolism or arterial dissection. Electronically Signed: Akash Ragsdale MD at 16:28 EDT , Service support ,
[2020-12-28 15:09] VITALS: PULSE 94; RESP 18; O2SAT 97
--- NOTE | 2020-12-28 15:09 | ED.VIS.DYS ---
HPI History of Present Illness Chief Complaint: Shortness of Breath Informant: patient Narrative Narrative: Patient is a 45-year-old female with recent diagnosis of Covid and currently on 2 L home oxygen presented worsening shortness of breath. Patient states this week she is been more active but she has also been more short of breath. She is also been more fatigued. She is continued to have a cough. She denies any fevers. Patient is unsure if her asthma is flaring up. She states on Wednesday, 3 days ago her chest started feel more heavy. Intermittently her cough is productive of sputum. She denies any swelling of her legs. She has a history of DVT or PE. She saw her PCP today who will obtain an EKG and was concerned that there is possibly some R wave progression change. She sent her to the emergency room for further evaluation. [facility] Medical History Asthma Home Medications albuterol sulfate [Ventolin HFA] 1 - 2 puff INHALATION Q4H PRN PRN 05/28/16 [History Last Taken 11/23/20 17:00] beclomethasone dipropionate 40 mcg INHALATION BID 11/23/20 [History Last Taken Unknown] montelukast [Singulair] 10 mg PO QHS 11/23/20 [History Last Taken 11/22/20 21:00] albuterol sulfate 2.5 mg INHALATION Q20M PRN 5 Days #30 ea 11/26/20 [Rx Last Taken Unknown] prednisone 40 mg PO DAILY #10 tab 12/28/20 [Rx Last Taken Unknown] Allergy/AdvReac Type Severity Reaction Status Date / Time Penicillins Allergy Rash Verified 12/28/20 12:46 erythromycin base AdvReac Unknown Verified 12/28/20 12:46 [Erythromycin Base] Social History Smoking Status: Never smoker substance use type: does not use ROS ROS ED Constitutional Constitutional ED: Reports malaise; Denies chills or fever(s) Eyes Eyes: Denies blurry vision ENT ENT ED: Denies ear pain or sore throat Cardiovascular Cardiovascular: Reports chest pain; Denies palpitations Respiratory/Chest Respiratory/Chest: Reports cough, dyspnea, dyspnea on exertion and sputum Gastrointestinal Gastrointestinal: Denies abdominal pain, nausea or vomiting Genitourinary Genitourinary ED: Denies dysuria Musculoskeletal Musculoskeletal: Denies arthralgias or myalgias Integumentary Denies rash Neurologic Neurologic: Denies headache(s) or weakness Psychiatric Psychiatric: Denies depression EXAM Physical Exam Const Vital Signs: 12/28/20 12:44 12/28/20 14:26 12/28/20 15:09 Temperature 97.8 F Temperature Source Temporal Pulse Rate 100 94 Respiratory Rate 18 18 Blood Pressure 142/106 H Blood Pressure Mean 118 Pulse Ox 97 97 Oxygen Delivery Method Room Air Nasal Cannula Room Air Positive well nourished, well developed and obese General Appearance ED: well developed Nutritional Appearance: obese HEENT Reports moist mucous membranes atraumatic Eyes PERRL Neck no lymphadenopathy and supple Resp normal respiratory effort Auscultation: diminished lung sounds; Negative for rales, rhonchi or wheezes Cardio regular rhythm and no murmurs Rate: tachycardic GI non-tender and non-distended Palpation: soft Back/Spine normal to inspection Extremity normal to inspection General Extremety ED: Negative for edema or tenderness General Extremity: Negative for edema Neuro oriented x3 and CN's II-XII intact bilaterally Sensorium / Orientation: alert Gait (Neuro): normal gait Psych mental status grossly normal Skin Rashes: no rashes MDM MDM MDM Narrative Medical decision making narrative: Patient evaluated for concern of EKG change as well as worsening shortness of breath. She had Covid last month. She has been on home oxygen. Overall patient is well-appearing. She has clear breath sounds. She is not hypoxic in the emergency room. Her vital signs are stable. Her EKG is normal here. Given her increasing symptoms and a recent Covid I did take CTA of the chest to rule out PE. This was negative and actually showed interval improvement of her lung disease. Work-up largely unremarkable. Patient notes that she has been increasing her physical activity as possible she is just overdoing it. She is also concerned that she could have an asthma exacerbation. She states she was wheezing earlier. She is given a [id number] prescription for prednisone. She will follow-up with her PCP. At this time I do not think there is any emergent cardiopulmonary process however and I think she stable for outpatient follow-up. Lab Data Attestation: I reviewed the patient's lab results. Labs: Laboratory Results - last 24 hr 12/28/20 12/28/20 12/28/20 14:35 14:35 14:35 WBC 8.7 RBC 4.50 Hgb 13.9 Hct 40.4 MCV 89.8 MCH 30.9 MCHC 34.4 RDW Std Deviation 43.9 RDW Coeff of Clara 13.5 Plt Count 383 MPV 9.7 Immature Gran % (Auto) 1.300 H Neut % (Auto) 60.7 Lymph % (Auto) 27.4 [place] % (Auto) 5.1 Eos % (Auto) 4.9 Baso % (Auto) 0.6 Absolute Neuts (auto) 5.3 Absolute Lymphs (auto) 2.38 Nucleated RBC % 0 Sodium 139 Potassium 3.8 Chloride 105 Carbon Dioxide 29.0 Anion Gap 5 BUN 13 Creatinine 0.77 Estim Creat Clear Calc 87.28 Est GFR (MDRD) Af Amer 105 Est GFR (MDRD) Non-Af 87 BUN/Creatinine Ratio 16.9 Glucose 96 Calcium 8.8 Troponin I High Sens 5 B-Natriuretic Peptide TSH 0.99 12/28/20 14:35 WBC RBC Hgb Hct MCV MCH MCHC RDW Std Deviation RDW Coeff of Clara Plt Count MPV Immature Gran % (Auto) Neut % (Auto) Lymph % (Auto) [place] % (Auto) Eos % (Auto) Baso % (Auto) Absolute Neuts (auto) Absolute Lymphs (auto) Nucleated RBC % Sodium Potassium Chloride Carbon Dioxide Anion Gap BUN Creatinine Estim Creat Clear Calc Est GFR (MDRD) Af Amer Est GFR (MDRD) Non-Af BUN/Creatinine Ratio Glucose Calcium Troponin I High Sens B-Natriuretic Peptide 12.6 TSH Radiography Chest X-Ray - ED: 1 View, Read by ED Physician, Read by Radiologist, Right Infiltrate and Left Infiltrate Diagnostic Testing: Clinical Impression(s) from Imaging Studies Chest X-Ray 12/28/20 14:26 IMPRESSION: Covid pneumonia. Stable since prior. Electronically Signed: Cori Fabian MD at 16:29 EDT Tel , Service support , Chest CTA 12/28/20 15:08 IMPRESSION: 1. Near complete resolution of previously seen pneumonic infiltrates scattered throughout both lungs with only minimal groundglass edema and interstitial thickening remaining. No pleural effusion is present. 2. No demonstrated pulmonary embolism or arterial dissection. Electronically Signed: Akash Ragsdale MD at 16:28 EDT , Service support , Rhythm Strip Rhythm Strip: Sinus Rhythm Rate: 84 Ectopy: None EKG Initial EKG: Attestation: I personally reviewed and interpreted this EKG as follows: Interpretation: Sinus Rhythm Comments: Normal sinus rhythm at a rate of 84 Normal axis Normal intervals Normal ST segments Discharge Plan Triage Chief Complaint: Shortness of Breath ED Provider: Gabriela Berumen Dx/Rx/DC Orders Clinical Impression: Dyspnea, Dyspnea due to COVID-19 Instructions: ED Dyspnea Prescriptions: New prednisone 20 mg tablet 40 mg PO DAILY Qty: 10 RF: 0 No Action albuterol sulfate [Ventolin HFA] 1 INHALER inhaler 1 - 2 puff inhalation Q4H PRN PRN (Reason: Sob &/Or Wheezing) RF: 0 montelukast [Singulair] 10 mg Tablet 10 mg PO QHS RF: 0 beclomethasone dipropionate 40 mcg/actuation Aerosol 40 mcg INHALATION BID RF: 0 albuterol sulfate 2.5 mg/0.5 mL solution for nebulization 2.5 mg inhalation Q20M PRN (Reason: shortness of breath or wheezing) 5 Days Qty: 30 RF: 0 Primary Care Provider: Mahsa Lira Referrals: Mahsa Lira MD [Primary Care Provider] - Activity Restrictions/Additional Instructions: Your work-up was normal today with no signs of a blood clot or secondary bacterial infection/pneumonia. No signs of stress on your heart. Take prednisone only if your breathing/wheezing worsens Disposition Discharge Date/Time: 12/28/20 17:47
[2020-12-28 15:57] LABS: Thyroid Stim Hormone (TSH) 0.99 uIU/mL (0.358-3.74)
[2020-12-28 16:00] LABS: BNP,B-Type NATRIURETIC PEPTIDE 12.6 pg/mL (0-100)
== END 2020-12-28 17:47 ==
PROVIDERS: Emergency Provider Emergency Medicine; PCP Internal Medicine
DX: U07.1 COVID-19 (principal); J45.909 Unspecified asthma, uncomplicated; E66.9 Obesity, unspecified; Z86.718 Personal history of other venous thrombosis and embolism
CPT/HCPCS: 71045; 71275; 80048; 83880; 84443; 84484; 85025; 93005; 96360; 99284; J7040; Q9967; A4216

== ENCOUNTER 2023-03-06 03:30 | Emergency (ER) | payer OTHER, SELFPAY ==
[2023-03-06 03:32] VITALS: BP 174/101; PULSE 80; RESP 18; TEMP 36.1; O2SAT 100; BMI 33.9
[2023-03-06 04:02] LABS: Bacteria 0 SEEN /hpf (None Seen); Mucous, Urine 0 SEEN /hpf (<or=2+); Red Blood Cells-Urine 0 SEEN /hpf (0-5); White Blood Cells 0 SEEN /hpf (0-5)
[2023-03-06] MEDS: Ondansetron 4 MG/2 ML Vial IV (04:03)
[2023-03-06 04:06] LABS: Absolute Lymphocyte Count 3.38 X10^3/uL (0.83-4.51); Absolute Neutrophil Count 5.5 X10^3/uL (2.0-7.7); Basophil# 0.05 X10^3/uL; Basophil% 0.5 % (0-1); Eosinophil# 0.38 X10^3/uL; Eosinophils% 3.8 % (0-5); Hematocrit 41.8 % (37-47); Hemoglobin 14.4 g/dL (12.0-15.0); Lymphocyte # 3.38 X10^3/ul (0.83-4.51); Lymphocyte % 34.1 % (19-41); Mean Corp Hgb Conc 34.4 g/dL (32-36); Mean Corpuscular Hgb 30.1 pg (27.0-32.0); Mean Corpuscular Volume 87.3 fL (81-99); Monocyte# 0.61 X10^3/uL; Monocyte% 6.1 % (0-10); NRBC Flagged by Analyzer 0 % (0-5); Neutrophil # 5.45 X10^3/uL (2.7-7.7); Platelet Count 304 K/mm3 (150-450); RBC Distribution Width CV 11.9 % (11.6-14.6); RBC Distribution Width SD 37.5 fl (35.1-43.9); Red Blood Count 4.79 M/mm3 (4.2-5.4); White Blood Count 9.9 K/mm3 (4.4-11.0)
[2023-03-06 04:08] LABS: Color, Urine Yellow (Yellow); Glucose, Dipstick Normal (Normal); Ketone-Dipstick Negative (Negative); Leukocyte Esterase-Dipstick Negative /ul (Negative); Nitrite-Dipstick Negative (Negative); Occult Blood-Urine Negative /ul (Negative); Protein-Dipstick Negative (Negative); Specific Gravity, Urine 1.015 (1.002-1.030); Urine Bilirubin Dipstick Negative (Negative); Urine Clarity Clear (Clear); Urine Urobilinogen Normal (Normal)
[2023-03-06 04:23] LABS: ALB/GLOB Ratio 0.9 RATIO (0.9-2.4); AST(SGOT) 12 U/L (15-37); Alanine Aminotransfer ALT/SGPT 20 U/L (13-56); Albumin, Serum 3.3 g/dL (3.2-5.0); Alkaline Phosphatase 73 U/L (45-117); Anion Gap 5 (5-15); BUN 21 mg/dL (7-18); BUN/Creat Ratio 29.3 RATIO (10-20); Calcium,Total 8.6 mg/dL (8.5-10.1); Chloride 108 mmol/L (98-107); Creatinine, Serum 0.72 mg/dL (0.55-1.02); EST Glomerular Filtration Rate 93 mL/min (>60); Est Glom Filt Rate - Afr Amer 112 mL/min (>60); Globulin 3.5 g/dL (2.2-4.2); Glucose 122 mg/dL (74-106); Potassium 3.7 mmol/L (3.5-5.1); Protein, Total 6.8 g/dL (6.4-8.2); Sodium Level 141 mmol/L (136-145)
[2023-03-06 04:26] LABS: Squamous Epithelial Cells - UA 0-5 SEEN /hpf (5-10)
[2023-03-06 04:35] LABS: Internal QC Validated? YES +Cl - CLEAR BKGD; Pregnancy, Serum, hCG Quali. NEGATIVE Negative
--- NOTE | 2023-03-06 04:37 | ED.VIS.GI ---
HPI HPI - GI History of Present Illness Chief Complaint: Abd Pain Informant: patient Abdominal Pain/Flank Pain Onset: Today and Hours (2) Context: Sudden Onset Timing: Continuous Quality: Aching Location: Epigastric Worsened by: Nothing Relieved by: Nothing Nausea/Vomiting/Emesis GI Symptom: Positive for Nausea; Negative for Vomiting Diarrhea/Melena/Hematochezia GI Symptom: Negative for Diarrhea, Melena or Hematochezia Associated Symptoms Associated Symptoms: Negative for Dysuria, Frequency or Hematuria Narrative Narrative: Patient presents with abdominal pain that began 2 hours prior to arrival. Patient states it began rather suddenly. Patient states the pain is over the epigastric area and radiates into her back. Patient states it also radiates into the upper quadrants bilaterally. Patient describes her pain as aching. Patient states nothing makes it better nothing makes it worse. Patient admits to some nausea but denies any vomiting. Patient denies any diarrhea, melena, or hematochezia. Patient denies any dysuria, frequency, or hematuria. Patient states she was recently treated with Paxlovid for COVID-19 infection. Patient states she completed the course without complications. [facility] Medical History Asthma Home Medications albuterol sulfate 90 mcg/actuation aerosol inhaler (Ventolin HFA) 1 - 2 puff inhalation Q4H PRN PRN Sob &/Or Wheezing 05/28/16 [History Last Taken 11/23/20 17:00] beclomethasone dipropionate 40 mcg/actuation aerosol inhaler 40 mcg inhalation BID 11/23/20 [History Last Taken Unknown] montelukast 10 mg tablet (Singulair) 10 mg PO QHS allergies 11/23/20 [History Last Taken 11/22/20 21:00] albuterol sulfate 2.5 mg/0.5 mL solution for nebulization 2.5 mg (0.5 mL) inhalation Q20M PRN shortness of breath or wheezing 5 days #30 ea 11/26/20 [Rx Last Taken Unknown] hydrocodone-acetaminophen 5-325mg 5mg-325mg 1 tab PO Q6H PRN PRN Pain 3 days #10 TABLETS 03/06/23 [Rx Last Taken Unknown] ondansetron 4 mg disintegrating tablet 4 mg PO Q8H PRN PRN Nausea #10 tabs 03/06/23 [Rx Last Taken Unknown] Allergy/AdvReac Type Severity Reaction Status Date / Time Penicillins Allergy Rash Verified 03/06/23 03:32 erythromycin base AdvReac Unknown Verified 03/06/23 03:32 [Erythromycin Base] Surgical History (Updated 03/06/23 @ 10:[address] Jarrod No DO) H/O section History of hysterectomy Social History Smoking Status: Never smoker substance use type: does not use ROS ROS ED Constitutional Constitutional ED: Denies chills or fever(s) Eyes Eyes: Denies blurry vision or change in vision ENT ENT ED: Denies rhinorrhea or sore throat Cardiovascular Cardiovascular: Denies chest pain or palpitations Respiratory/Chest Respiratory/Chest: Denies cough or dyspnea Gastrointestinal Gastrointestinal: Reports abdominal pain and nausea; Denies vomiting Genitourinary Genitourinary ED: Denies dysuria or hematuria Musculoskeletal Musculoskeletal: Reports back pain; Denies neck pain Integumentary Denies abscess or rash Neurologic Neurologic: Denies headache(s) or weakness Allergic/Immunologic Allergic/Immunologic ED: Denies mouth swelling or urticaria EXAM Physical Exam Const Vital Signs: 03/06/23 03:32 03/06/23 06:56 Temperature 97 F L Temperature Source Temporal Pulse Rate 80 68 Respiratory Rate 18 17 Blood Pressure 174/101 H 102/42 L Blood Pressure Mean 125 62 Pulse Ox 100 95 Oxygen Delivery Method Room Air Positive well nourished and well developed General Appearance ED: well developed and NAD HEENT Reports moist mucous membranes Neck supple and no JVD Resp normal respiratory effort and clear to auscultation bilaterally Cardio regular rate and regular rhythm GI non-distended Palpation: soft and tender epigastric, LUQ, RUQ and Nielsen's sign (Negative); Negative for guarding, hepatomegaly or rebound tenderness present Neuro CN's II-XII intact bilaterally, moves all extremities and no sensory deficits noted Sensorium / Orientation: alert Motor Exam: strength 5/5 throughout Psych mental status grossly normal MDM MDM MDM Narrative Medical decision making narrative: Differential diagnosis includes pancreatitis, gastric ulcer, gastroesophageal reflux disease, duodenal ulcer, cholecystitis, cholelithiasis, urinary tract infection, pyelonephritis, and gastroenteritis. CBC will be obtained to assess for leukocytosis and anemia. Comprehensive metabolic profile will be obtained to assess for electrolyte abnormality, renal function, and hepatic function. Lipase will be obtained to assess for pancreatitis. Urinalysis will be obtained to assess for urinary tract infection and hematuria. Serum hCG will be obtained to assess for . Lab Data Attestation: I reviewed the patient's lab results. Lab results narrative: CBC was reviewed and was within normal limits. Comprehensive metabolic profile was reviewed and was essentially within normal limits. Serum hCG was reviewed and was negative. Urinalysis was reviewed. There is no evidence of urinary tract infection or hematuria. Lipase was reviewed and was slightly elevated to 88. Labs: Laboratory Results - last 24 hr 03/06/23 03/06/23 03/06/23 03:55 04:00 04:04 WBC 9.9 RBC 4.79 Hgb 14.4 Hct 41.8 MCV 87.3 MCH 30.1 MCHC 34.4 RDW Std Deviation 37.5 RDW Coeff of Clara 11.9 Plt Count 304 MPV 10.0 Immature Gran % (Auto) 0.500 Neut % (Auto) 55.0 Lymph % (Auto) 34.1 [place] % (Auto) 6.1 Eos % (Auto) 3.8 Baso % (Auto) 0.5 Absolute Neuts (auto) 5.5 Absolute Lymphs (auto) 3.38 Nucleated RBC % 0 Sodium 141 Potassium 3.7 Chloride 108 H Carbon Dioxide 28.0 Anion Gap 5 BUN 21 H Creatinine 0.72 Estim Creat Clear Calc 91.40 Est GFR (MDRD) Af Amer 112 Est GFR (MDRD) Non-Af 93 BUN/Creatinine Ratio 29.3 H Glucose 122 H Calcium 8.6 Total Bilirubin 0.30 AST 12 L ALT 20 Alkaline Phosphatase 73 Total Protein 6.8 Albumin 3.3 Globulin 3.5 Albumin/Globulin Ratio 0.9 Lipase 88 H Serum , Qual NEGATIVE Urine Color Yellow Urine Clarity Clear Urine pH 7.0 Ur Specific [place] 1.015 Urine Protein Negative Urine Glucose (UA) Normal Urine Ketones Negative Urine Occult Blood Negative Urine Nitrite Negative Urine Bilirubin Negative Urine Urobilinogen Normal Ur Leukocyte Esterase Negative Urine RBC 0 SEEN Urine WBC 0 SEEN Ur Squamous Epith Cells 0-5 SEEN Urine Bacteria 0 SEEN Urine Mucus 0 SEEN Treatment and Re-Evaluation :: Patient was given morphine and Zofran here. Patient is feeling better on reevaluation. Patient was advised of her findings. Patient was instructed to start with a liquid diet and advance to a bland diet and then to a regular diet as she feels better. Patient was instructed to follow-up with her primary care physician in 5 to 7 days. Patient understood and was agreeable with the plan. All questions were answered. Discharge Plan Triage Chief Complaint: Abd Pain ED Provider: Jarrod No Dx/Rx/DC Orders Clinical Impression: Abdominal pain, Nausea Instructions: ED Abdominal Pain Unkn Cause Fem Prescriptions: New hydrocodone-acetaminophen [hydrocodone-acetaminophen] 5-325 mg tablet 1 tab PO Q6H PRN PRN (Reason: Pain) 3 Days Qty: 10 0RF ondansetron [ondansetron] 4 mg tablet,disintegrating 4 mg PO Q8H PRN PRN (Reason: Nausea) Qty: 10 0RF No Action albuterol sulfate [Ventolin HFA] 1 INHALER inhaler 1 - 2 puff inhalation Q4H PRN PRN (Reason: Sob &/Or Wheezing) montelukast [Singulair] 10 mg Tablet 10 mg PO QHS beclomethasone dipropionate 40 mcg/actuation Aerosol 40 mcg INHALATION BID albuterol sulfate 2.5 mg/0.5 mL solution for nebulization 2.5 mg inhalation Q20M PRN (Reason: shortness of breath or wheezing) 5 Days Qty: 30 0RF Rx Instructions: for up to 3 doses Primary Care Provider: Mahsa Lira Referrals: Mahsa Lira MD [Primary Care Provider] - 5-7 Days Disposition Disposition: Home, Self Care Discharge Date/Time: 03/06/23 08:20
[2023-03-06] MEDS: Morphine 4 MG/ML Syringe IV (04:58)
[2023-03-06 05:40] LABS: Lipase 88 U/L (13-75)
[2023-03-06 06:56] VITALS: BP 102/42; PULSE 68; RESP 17; O2SAT 95
== END 2023-03-06 08:20 | disposition home or self-care (01) ==
PROVIDERS: Emergency Provider Emergency Medicine; PCP Internal Medicine; Visit Provider Emergency Medicine
DX: R10.11 Right upper quadrant pain (principal); R10.12 Left upper quadrant pain; R10.13 Epigastric pain; R11.0 Nausea; M54.9 Dorsalgia, unspecified; J45.909 Unspecified asthma, uncomplicated; Z86.16 Personal history of COVID-19
CPT/HCPCS: 80053; 81001; 83690; 84703; 85025; 96374; 96375; 99283; A4216; J2405

== ENCOUNTER 2023-03-11 16:46 | Emergency (ER) | payer OTHER, SELFPAY ==
[2023-03-11 16:47] VITALS: BP 138/101; PULSE 75; RESP 16; TEMP 35.8; O2SAT 96; BMI 34.1
--- NOTE | 2023-03-11 17:43 | RAD_ITS ---
INDICATION: chest pain EXAMINATION/TECHNIQUE: X-RAY - XR Chest 1 View COMPARISON: No previous relevant examinations available for comparison.. FINDINGS: LIFE-SUPPORT AND LINES: 1. None HEART AND VESSELS: The cardiac silhouette, pulmonary vasculature have normal appearance. No evidence of congestive failure. LUNGS AND PLEURAL SPACES: Lungs are clear. No focal infiltrate, consolidation or effusions. No evidence of pneumothorax. No pulmonary mass is noted. MEDIASTINUM AND HILAR REGIONS: No masses adenopathy noted. No areas of calcification. Visualized upper airway is normal in position. BONY ELEMENTS: No acute bony changes noted. RAD/Chest 1 View (Portable) IMPRESSION: 1. No evidence of acute cardiopulmonary process Electronically Signed: Jean Claude Anthony MD at 18:09 EST ,
[2023-03-11 17:46] VITALS: BP 144/94; PULSE 67; RESP 17; O2SAT 98
[2023-03-11 18:02] VITALS: O2SAT 97
--- OUTSIDE RECORDS SUMMARY | 2023-03-11 18:17 | XMS RPT_ITS | CCD ---
Author Name Unknown Address [address] [place] [address] Organization [facility] Care Team Providers Care Bus Driver Name Role Phone Soraya VENCES, Conrado Primary Care Provider [phone] CONRADO NIXON Primary Care Unavailable CONRADO NIXON Referring Unavailable CONRADO NIXON Primary Care Unavailable CONRADO NIXON Primary Care Unavailable BUTCH VIEYRA Referring Unavailable CONRADO NIXON Primary Care Unavailable CONRADO NIXON Primary Care Unavailable CONRADO NIXON Primary Care Unavailable JOSEY LUGO Attending Unavailable
[2023-03-11 18:28] LABS: Absolute Lymphocyte Count 2.39 X10^3/uL (0.83-4.51); Basophil# 0.04 X10^3/uL; Basophil% 0.6 % (0-1); Eosinophil# 0.27 X10^3/uL; Eosinophils% 3.8 % (0-5); Hematocrit 41.8 % (37-47); Hemoglobin 14.3 g/dL (12.0-15.0); Lymphocyte # 2.39 X10^3/ul (0.83-4.51); Lymphocyte % 33.5 % (19-41); Mean Corp Hgb Conc 34.2 g/dL (32-36); Mean Corpuscular Hgb 29.7 pg (27.0-32.0); Mean Corpuscular Volume 86.9 fL (81-99); Mean Platelet Vol. 10.5 fl (6.2-12.0); Monocyte# 0.44 X10^3/uL; Monocyte% 6.2 % (0-10); NRBC Flagged by Analyzer 0 % (0-5); Neutrophil # 3.97 X10^3/uL (2.7-7.7); Neutrophil % 55.5 % (47-70); Platelet Count 295 K/mm3 (150-450); RBC Distribution Width CV 11.6 % (11.6-14.6); RBC Distribution Width SD 36.9 fl (35.1-43.9); Red Blood Count 4.81 M/mm3 (4.2-5.4); White Blood Count 7.1 K/mm3 (4.4-11.0)
--- NOTE | 2023-03-11 18:44 | ED.VIS.CHEST ---
HPI History of Present Illness Chief Complaint: Palpitations Informant: patient and spouse/S.O. Onset/Context/Timing Onset: Days Activity at onset: gradual Timing: Intermittent Narrative Narrative: 47-year-old female history of asthma had COVID 2 to 3 weeks ago. She uses inhaler for her asthma. Has been having some palpitations last 3 days. No chest pain. No fever. No nausea or vomiting. Mildly loose stools. No hemoptysis. No history of DVT or PE. No leg pain or swelling. Prior Similar Symptoms: Yes Recent Illness/Hospitalization: No CVD Risk Factors: Negative for Hypertension PE Risk Factors: Negative for Recent Travel/Surgery, Recent Immobilization, Prior DVT or PE, Cancer or OCP + Smoking + >/=35 TAD Risk Factors: Negative for Marfan's Syndrome PFSH [facility] Medical History Asthma no medical history Home Medications albuterol sulfate 90 mcg/actuation aerosol inhaler (Ventolin HFA) 1 - 2 puff inhalation Q4H PRN PRN Sob &/Or Wheezing 05/28/16 [History Last Taken 11/23/20 17:00] beclomethasone dipropionate 40 mcg/actuation aerosol inhaler 40 mcg inhalation BID 11/23/20 [History Last Taken Unknown] montelukast 10 mg tablet (Singulair) 10 mg PO QHS allergies 11/23/20 [History Last Taken 11/22/20 21:00] albuterol sulfate 2.5 mg/0.5 mL solution for nebulization 2.5 mg (0.5 mL) inhalation Q20M PRN shortness of breath or wheezing 5 days #30 ea 11/26/20 [Rx Last Taken Unknown] hydrocodone-acetaminophen 5-325mg 5mg-325mg 1 tab PO Q6H PRN PRN Pain 3 days #10 TABLETS 03/06/23 [Rx Last Taken Unknown] ondansetron 4 mg disintegrating tablet 4 mg PO Q8H PRN PRN Nausea #10 tabs 03/06/23 [Rx Last Taken Unknown] Allergy/AdvReac Type Severity Reaction Status Date / Time Penicillins Allergy Rash Verified 03/11/23 18:26 erythromycin base AdvReac Unknown Verified 03/11/23 18:26 [Erythromycin Base] Surgical History H/O section History of hysterectomy Social History Smoking Status: Never smoker substance use type: does not use ROS ROS ED ROS Narrative COVID 2 weeks ago. Review of Systems ROS Unobtainable: Denies due to encephalopathy Constitutional Constitutional ED: Denies chills or fever(s) Eyes Eyes: Reports none ENT ENT ED: Denies ear pain Cardiovascular Cardiovascular: Reports as per HPI and palpitations; Denies chest pain or racing heartbeat Respiratory/Chest Respiratory/Chest: Denies cough, dyspnea or dyspnea on exertion Gastrointestinal Gastrointestinal: Denies abdominal pain, nausea or vomiting Genitourinary Genitourinary ED: Denies dysuria or hematuria Musculoskeletal Musculoskeletal: Denies arthralgias or back pain Integumentary Denies abscess Neurologic Neurologic: Denies headache(s) Psychiatric Psychiatric: Denies anxiety Endocrine Endocrinology: Denies cold intolerance Hematologic/Lymphatic Hematologic/Lymphatic: Denies easy bleeding Allergic/Immunologic Allergic/Immunologic ED: Denies mouth swelling EXAM Physical Exam Narrative Exam Narrative: Well-appearing 47-year-old female. Vital signs stable afebrile. Pulse ox 96% on room air no hypoxia. No distress. HEENT exam normal. Neck nontender no JVD. No lymphadenopathy. No thyromegaly. Lungs clear to auscultation bilaterally. Heart regular rate and rhythm rate about 70 no murmur. Chest were nontender. Abdomen soft nontender. Back nontender. Moving all 4 extremities. Calves are nontender no edema no cords. Neurologically he is awake and alert with no focal motor deficits. Const Vital Signs: 03/11/23 16:47 03/11/23 18:02 03/11/23 17:46 Temperature 96.5 F L Temperature Source Temporal Pulse Rate 75 67 Respiratory Rate 16 17 Respiratory Effort Blood Pressure 138/101 H 144/94 H Blood Pressure Mean 113 110 Pulse Ox 96 97 98 Oxygen Delivery Method Room Air Room Air Room Air 03/11/23 18:26 Temperature Temperature Source Pulse Rate Respiratory Rate Respiratory Effort Normal Non-Labored Blood Pressure Blood Pressure Mean Pulse Ox Oxygen Delivery Method Positive well nourished and well developed; Negative for cachectic, contractures or unkempt General Appearance ED: well developed and NAD; Negative for unkempt, cachectic, contractures or pallor Nutritional Appearance: Negative for cachectic HEENT Reports moist mucous membranes normocephalic and atraumatic; Negative for trauma or tenderness Eyes PERRL and EOMs intact bilaterally General Eye ED: Negative for pale conjunctiva or scleral icterus Neck no lymphadenopathy, supple and no JVD General: Negative for tenderness Chest Wall inspection of chest normal and palpation of chest normal Chest: Negative for tenderness Resp normal respiratory effort and clear to auscultation bilaterally Effort and Inspection: Negative for respiratory distress Auscultation: Negative for rales, rhonchi or wheezes Cardio regular rate, regular rhythm, S1 normal heart sound, S2 normal heart sound and no murmurs Rate: Negative for bradycardia or tachycardic Rhythm: Negative for abnormal rhythm Peripheral Pulses: pulses 2+ throughout GI normal to inspection, nondistended, normoactive bowel sounds, soft to palpation, non-tender, non-distended and no masses Auscultation: Negative for hyperactive bowel sounds Back/Spine no CVA tenderness and no thoracic nor lumbar tenderness General Back: Negative for CVA tenderness Cervical Spine: Negative for cervical spine tenderness Extremity normal to inspection General Extremety ED: Negative for edema, pulses abnormal or tenderness General Extremity: Negative for edema or pulses abnormal Neuro oriented x3 and CN's II-XII intact bilaterally Sensorium / Orientation: awake, alert, oriented to person, oriented to place and oriented to time; Negative for confused, lethargic or stuporous Motor Exam: strength 5/5 throughout Psych mental status grossly normal Appearance: Negative for unkempt Attitude: No agitated Mood & Affect: Negative for depressed, anxious or tearful Skin no rashes or lesions noted and no wounds General Skin Exam: Negative for jaundice or pallor Rashes: No rashes noted Trauma: Negative for abrasion, laceration or puncture MDM MDM MDM Narrative Medical decision making narrative: 47-year-old palpitations. Has a totally benign exam. Had a normal sinus rhythm the entire time is in the room with no PACs, PVCs nor tachycardia. Screening labs will be obtained. Cardiac workup. [place] exam doing well at 7:33 PM will be discharged home. We went over all of her test results. Follow-up as needed. History & Record Review Discussion w/independent historian: Patient Additional record(s) reviewed:: Prior inpatient record, Prior outpatient record, Prior ED visit, Prior labs and No prior records Lab Data Attestation: I reviewed the patient's lab results. Lab results narrative: CBC normal. White count of 7. H&H 14 and 41. Platelets 295. Chemistries normal sodium 137. Potassium 3.7. Gap 3. Normal BUN of 18 creatinine 0.7. Glucose 100. Troponin normal at 5. Labs: Laboratory Results - last 24 hr 03/11/23 18:23 WBC 7.1 RBC 4.81 Hgb 14.3 Hct 41.8 MCV 86.9 MCH 29.7 MCHC 34.2 RDW Std Deviation 36.9 RDW Coeff of [place] 11.6 Plt Count 295 MPV 10.5 Immature Gran % (Auto) 0.400 Neut % (Auto) 55.5 Lymph % (Auto) 33.5 [place] % (Auto) 6.2 Eos % (Auto) 3.8 Baso % (Auto) 0.6 Absolute Neuts (auto) 4.0 Absolute Lymphs (auto) 2.39 Nucleated RBC % 0 Sodium 137 Potassium 3.7 Chloride 104 Carbon Dioxide 30.0 Anion Gap 3 L BUN 18 Creatinine 0.77 Estim Creat Clear Calc 85.46 Est GFR (MDRD) Af Amer 104 Est GFR (MDRD) Non-Af 86 BUN/Creatinine Ratio 23.4 H Glucose 100 Calcium 9.0 Troponin I High Sens 5 Radiography Chest X-Ray - ED: 1 View, Read by ED Physician, Read by Radiologist, Heart, Lungs, Mediastinum, Bony Structures, No Acute Disease and Chronic Changes Diagnostic Testing: Clinical Impression(s) from Imaging Studies Chest X-Ray 03/11/23 17:43 IMPRESSION: 1. No evidence of acute cardiopulmonary process Electronically Signed: Jean Claude Anthony MD at 18:09 EST , Chest x-ray, portable, single view shows no acute abnormality. Normal cardiac silhouette. Normal mediastinum. Normal lung herman. Rhythm Strip Rhythm Strip: Sinus Rhythm Rate: 75 Ectopy: None EKG Initial EKG: Attestation: I personally reviewed and interpreted this EKG as follows: Interpretation: Sinus Rhythm and No Acute Injury Pattern Comments: Normal sinus rhythm rate of 75 no acute signs of MA nor ischemia. Discharge Plan Triage Chief Complaint: Palpitations ED Provider: Jeovany Beckham Dx/Rx/DC Orders Clinical Impression: Heart palpitations, History of asthma Instructions: ED Palpitations Prescriptions: No Action albuterol sulfate [Ventolin HFA] 1 INHALER inhaler 1 - 2 puff inhalation Q4H PRN PRN (Reason: Sob &/Or Wheezing) montelukast [Singulair] 10 mg Tablet 10 mg PO QHS beclomethasone dipropionate 40 mcg/actuation Aerosol 40 mcg INHALATION BID albuterol sulfate 2.5 mg/0.5 mL solution for nebulization 2.5 mg inhalation Q20M PRN (Reason: shortness of breath or wheezing) 5 Days Qty: 30 0RF Rx Instructions: for up to 3 doses hydrocodone-acetaminophen [hydrocodone-acetaminophen] 5-325 mg tablet 1 tab PO Q6H PRN PRN (Reason: Pain) 3 Days Qty: 10 0RF ondansetron [ondansetron] 4 mg tablet,disintegrating 4 mg PO Q8H PRN PRN (Reason: Nausea) Qty: 10 0RF Primary Care Provider: Mahsa Lira Referrals: Mahsa Lira MD [Primary Care Provider] - 1 Week if not improving Activity Restrictions/Additional Instructions: Follow-up with your doctor as needed. Your exam, EKG, chest x-ray and labs tonight all were normal. Disposition Disposition: Home, Self Care
[2023-03-11 18:49] LABS: Anion Gap 3 (5-15); BUN 18 mg/dL (7-18); BUN/Creat Ratio 23.4 RATIO (10-20); Chloride 104 mmol/L (98-107); Creatinine, Serum 0.77 mg/dL (0.55-1.02); EST Glomerular Filtration Rate 86 mL/min (>60); Est Glom Filt Rate - Afr Amer 104 mL/min (>60); Estimated Creatinine Clearance 85.46 ml/min; Glucose 100 mg/dL (74-106); Potassium 3.7 mmol/L (3.5-5.1); Sodium Level 137 mmol/L (136-145); Troponin-I HS (w/2H Reflex) 5 pg/mL (3.0-54.0)
[2023-03-11 19:47] VITALS: BP 136/82; PULSE 70; RESP 15; O2SAT 99
[2023-03-11 20:26] LABS: Reflex Troponin-HS? (from REC) Y
== END 2023-03-11 19:51 | disposition home or self-care (01) ==
PROVIDERS: Emergency Provider Emergency Medicine; PCP Internal Medicine; Visit Provider Emergency Medicine
DX: R00.2 Palpitations (principal); J45.909 Unspecified asthma, uncomplicated; Z86.16 Personal history of COVID-19
CPT/HCPCS: 71045; 80048; 84484; 85025; 93005; 99284; A4216

== ENCOUNTER 2023-10-17 22:27 | Emergency (ER) | payer OTHER, SELFPAY ==
[2023-10-17 22:28] VITALS: BP 165/107; PULSE 83; RESP 16; TEMP 35.9; O2SAT 96; BMI 34.0
--- NOTE | 2023-10-17 23:09 | ED.VIS.DENTA ---
HPI History of Present Illness Chief Complaint: Dental Informant: patient and spouse/S.O. Narrative Narrative: Patient has been having right mandibular molar pain for the last week or 2, but it became worse so she saw dentist a week ago, scheduled for root canal, it is scheduled for another week or so but the pain has been getting worse. She been taking Tylenol and ibuprofen is tolerating until today, and the pain is severe she cannot tolerate it. No fevers or chills. No discharge or bleeding. She feels like it is swollen but she has not noticed anything obvious. [facility] Medical History Asthma Home Medications ?Medication ?Instructions ?Recorded ?Last Taken ?Type albuterol sulfate 90 mcg/actuation 1 - 2 puff inhalation Q4H PRN PRN 05/28/16 11/23/20 17:00 History aerosol inhaler (Ventolin HFA) Sob &/Or Wheezing beclomethasone dipropionate 40 40 mcg inhalation BID 11/23/20 Unknown History mcg/actuation aerosol inhaler montelukast 10 mg tablet 10 mg PO QHS allergies 11/23/20 11/22/20 21:00 History (Singulair) albuterol sulfate 2.5 mg/0.5 mL 2.5 mg (0.5 mL) inhalation Q20M 11/26/20 Unknown Rx solution for nebulization PRN shortness of breath or wheezing 5 days #30 ea hydrocodone-acetaminophen 5-325mg 1 tab PO Q6H PRN PRN Pain 3 days 03/06/23 Unknown Rx 5mg-325mg #10 TABLETS ondansetron 4 mg disintegrating 4 mg PO Q8H PRN PRN Nausea #10 tabs 03/06/23 Unknown Rx tablet clindamycin HCl 300 mg capsule 300 mg PO Q6H #40 CAPSULES 10/17/23 Unknown Rx (Cleocin HCl) oxycodone-acetaminophen 5 mg-325 1 tab PO Q4H PRN Pain 3 days #15 10/17/23 Unknown Rx mg tablet TABLETS Allergy/AdvReac Type Severity Reaction Status Date / Time Penicillins Allergy Rash Verified 10/17/23 22:28 erythromycin base AdvReac Unknown Verified 10/17/23 22:28 (Erythromycin Base) Surgical History H/O section History of hysterectomy Social History Smoking Status: Never smoker substance use type: does not use ROS ROS ED Constitutional Constitutional ED: Denies chills or fever(s) Eyes Eyes: Denies change in vision or double vision ENT ENT ED: Reports dental pain; Denies sinus pain or throat swelling Cardiovascular Cardiovascular: Denies chest pain or palpitations Respiratory/Chest Respiratory/Chest: Denies cough or dyspnea Integumentary Denies abscess or rash Neurologic Neurologic: Denies headache(s), paresthesias or weakness EXAM Physical Exam Const Vital Signs: 10/17/23 22:28 10/17/23 23:17 Temperature 96.6 F L 98.9 F Temperature Source Temporal Pulse Rate 83 85 Respiratory Rate 16 8 L Blood Pressure 165/107 H 149/101 H Blood Pressure Mean 126 117 Pulse Ox 96 97 Oxygen Delivery Method Room Air Positive well nourished and well developed General Appearance ED: well developed and NAD HEENT HEENT Narrative: Tooth #30 has a cap on it and is tender to Percussion and palpation. The other nearby teeth are normal-appearing and nontender. The gingiva is normal, the buccal mucosa is normal, there is no palpable abscess in the sublingual areas are normal nondistended nontender. There is no trismus. Posterior pharynx is clear there is no stridor or dysphonia. She has a single tender right submandibular lymph node, does not feel like the salivary gland. Face and Sinus: sinuses nontender Throat: posterior oropharynx normal Eyes PERRL and EOMs intact bilaterally Neck supple Neck Narrative: Right submandibular lymphadenopathy tender mild Resp normal respiratory effort Neuro oriented x3 and CN's II-XII intact bilaterally Sensorium / Orientation: alert Gait (Neuro): normal gait Psych mental status grossly normal and thought process normal Skin no rashes or lesions noted and no wounds MDM MDM MDM Narrative Medical decision making narrative: Patient suggesting she may need antibiotics, she is allergic to penicillin. I tend to agree, this may be an early dental infection but there is no abscess right now. She does have a lymph node to suggest that. Prescribing her clindamycin, given appropriate discharge instructions regarding taking care to take a probiotic or eat yogurt to avoid antibiotic associated diarrhea and C. difficile, also prescribing some analgesics which are prescribed and gave her here. Discharge Plan Triage Chief Complaint: Dental ED Provider: Deonte Argueta Dx/Rx/DC Orders Clinical Impression: Pain, dental Instructions: ED Dental Pain Prescriptions: New clindamycin HCl [Cleocin HCl] 300 mg capsule 300 mg PO Q6H Qty: 40 0RF oxycodone-acetaminophen 5-325 mg tablet 1 tab PO Q4H PRN (Reason: Pain) 3 Days Qty: 15 0RF No Action albuterol sulfate [Ventolin HFA] 1 INHALER inhaler 1 - 2 puff inhalation Q4H PRN PRN (Reason: Sob &/Or Wheezing) montelukast [Singulair] 10 mg Tablet 10 mg PO QHS beclomethasone dipropionate 40 mcg/actuation Aerosol 40 mcg INHALATION BID albuterol sulfate 2.5 mg/0.5 mL solution for nebulization 2.5 mg inhalation Q20M PRN (Reason: shortness of breath or wheezing) 5 Days Qty: 30 0RF Rx Instructions: for up to 3 doses hydrocodone-acetaminophen [hydrocodone-acetaminophen] 5-325 mg tablet 1 tab PO Q6H PRN PRN (Reason: Pain) 3 Days Qty: 10 0RF ondansetron [ondansetron] 4 mg tablet,disintegrating 4 mg PO Q8H PRN PRN (Reason: Nausea) Qty: 10 0RF Primary Care Provider: Mahsa Lira Referrals: Mahsa Lira MD [Primary Care Provider] - Dentist,Your [STAFF PHYSICIAN] - Keep Kailyn appointment Activity Restrictions/Additional Instructions: You have a higher chance of having diarrhea and/or C. difficile infection being on clindamycin. To help mitigate this risk, take either a twice daily probiotic or eat yogurt every day while you are on the antibiotics. Print Language: Spanish Disposition Disposition: Home, Self Care Discharge Date/Time: 10/17/23 23:20
[2023-10-17] MEDS: oxyCODONE 5 MG Tablet PO (23:15)
[2023-10-17] MEDS: Clindamycin HCl 150 MG Capsule 300 MG PO (23:15)
[2023-10-17 23:17] VITALS: BP 149/101; PULSE 85; RESP 8; TEMP 37.2; O2SAT 97
== END 2023-10-17 23:20 | disposition home or self-care (01) ==
PROVIDERS: Emergency Provider Emergency Medicine; PCP Internal Medicine; Visit Provider Emergency Medicine
DX: K08.89 Other specified disorders of teeth and supporting structures (principal); J45.909 Unspecified asthma, uncomplicated; Z88.0 Allergy status to penicillin
CPT/HCPCS: 99283

== ENCOUNTER 2023-12-05 12:56 | Emergency (ER) | payer OTHER, SELFPAY ==
[2023-12-05 12:57] VITALS: BP 150/97; PULSE 82; RESP 14; TEMP 36.6; O2SAT 96; BMI 34.2
--- NOTE | 2023-12-05 13:08 | EKG12_ITS ---
Test Reason : CP Blood Pressure : / mmHG Vent. Rate : 072 BPM Atrial Rate : 072 BPM P-R Int : 162 ms QRS Dur : 106 ms QT Int : 422 ms P-R-T Axes : 069 058 062 degrees QTc Int : 462 ms Normal sinus rhythm Normal ECG Confirmed by Asaf Jasmine ([id number]), editor school photograph LAURENT ORELLANA ([id number]) on 12/07/2023 9:30:16 AM Referred By: WILFREDO/JUAN JOSE Confirmed By:Asaf Jasmine
--- NOTE | 2023-12-05 13:31 | RAD_ITS ---
STUDY: X-RAY CHEST REASON FOR EXAM: Female, 48 years old. Atypical chest pain TECHNIQUE: Single AP portable view of the chest. COMPARISON: 03/11/2023 FINDINGS: The lungs are clear and expanded. There is no demonstrated pleural abnormality. Normal size heart. Normal mediastinum and billy. Normal visualized pulmonary arteries. Normal visualized aortic arch and descending thoracic aorta. Normal visualized thoracic spine. Normal visualized ribs, clavicles, and shoulders. There is no demonstrated abnormality of the visualized soft tissue structures of the upper abdomen. RAD/Chest 1 View (Portable) IMPRESSION: Normal x-ray examination of the chest. Electronically Signed: See Vallejo MD at 14:01 EDT ,
[2023-12-05] MEDS: Ipratropium/Albuterol Sulfate 3 ML AMPUL.NEB INHALATION (14:09)
[2023-12-05 14:10] VITALS: PULSE 71; RESP 20
[2023-12-05 14:19] LABS: Absolute Lymphocyte Count 2.27 X10^3/uL (0.83-4.51); Absolute Neutrophil Count 3.6 X10^3/uL (2.0-7.7); Basophil# 0.04 X10^3/uL; Basophil% 0.6 % (0-1); Eosinophil# 0.66 X10^3/uL; Eosinophils% 9.4 % (0-5); Hematocrit 42.6 % (37-47); Hemoglobin 14.8 g/dL (12.0-15.0); Lymphocyte # 2.27 X10^3/ul (0.83-4.51); Lymphocyte % 32.3 % (19-41); Mean Corp Hgb Conc 34.7 g/dL (32-36); Mean Corpuscular Hgb 30.5 pg (27.0-32.0); Mean Corpuscular Volume 87.8 fL (81-99); Mean Platelet Vol. 10.2 fl (6.2-12.0); Monocyte# 0.41 X10^3/uL; Monocyte% 5.8 % (0-10); NRBC Flagged by Analyzer 0 % (0-5); Neutrophil # 3.63 X10^3/uL (2.7-7.7); Neutrophil % 51.6 % (47-70); Platelet Count 263 K/mm3 (150-450); RBC Distribution Width CV 11.9 % (11.6-14.6); Red Blood Count 4.85 M/mm3 (4.2-5.4)
[2023-12-05] MEDS: predniSONE 20 MG Tablet 60 MG PO (14:20)
[2023-12-05 14:36] LABS: Anion Gap 5 (5-15); BUN 16 mg/dL (7-18); BUN/Creat Ratio 20.4 RATIO (10-20); Calcium,Total 8.9 mg/dL (8.5-10.1); Chloride 105 mmol/L (98-107); Creatinine, Serum 0.79 mg/dL (0.55-1.02); EST Glomerular Filtration Rate 83 mL/min (>60); Est Glom Filt Rate - Afr Amer 101 mL/min (>60); Estimated Creatinine Clearance 103.04 ml/min; Glucose 116 mg/dL (74-106); Potassium 3.4 mmol/L (3.5-5.1); Sodium Level 139 mmol/L (136-145); Troponin-I HS (w/2H Reflex) < 3 pg/mL (3.0-54.0)
[2023-12-05 14:54] LABS: BNP,B-Type NATRIURETIC PEPTIDE 23.7 pg/mL (0-100)
[2023-12-05 14:57] VITALS: BP 165/101; PULSE 81; RESP 19; O2SAT 96
--- NOTE | 2023-12-05 15:31 | EDS_ITS ---
HPI History of Present Illness Chief Complaint: Chest Pain Narrative Narrative: Patient is a 48-year-old female with past medical history of asthma who presented to the emergency department the chief complaint of chest tightness and shortness of breath. States that about 3 weeks ago she was diagnosed with an upper respiratory tract infection and noted that she was placed on steroids. States that she has had worsening shortness of breath recently and has been using her inhaler [id number]. She states that she has not been on any steroids other than what is noted few weeks ago. According to her significant other at bedside he notes that in the past she did develop pneumonia about a year ago with similar symptoms. They state they went to an urgent care as concern for pneumonia and they were sent here for the valuation management. Patient denies any history of blood clots denies any recent travel history. [facility] Medical History Asthma Home Medications ?Medication ?Instructions ?Recorded ?Last Taken ?Type albuterol sulfate 90 mcg/actuation 1 - 2 puff inhalation Q4H PRN PRN 05/28/16 11/23/20 17:00 History aerosol inhaler (Ventolin HFA) Sob &/Or Wheezing beclomethasone dipropionate 40 40 mcg inhalation BID 11/23/20 Unknown History mcg/actuation aerosol inhaler montelukast 10 mg tablet 10 mg PO QHS allergies 11/23/20 11/22/20 21:00 History (Singulair) albuterol sulfate 2.5 mg/0.5 mL 2.5 mg (0.5 mL) inhalation Q20M 11/26/20 Unknown Rx solution for nebulization PRN shortness of breath or wheezing 5 days #30 ea hydrocodone-acetaminophen 5-325mg 1 tab PO Q6H PRN PRN Pain 3 days 03/06/23 Unknown Rx 5mg-325mg #10 TABLETS ondansetron 4 mg disintegrating 4 mg PO Q8H PRN PRN Nausea #10 tabs 03/06/23 Unknown Rx tablet clindamycin HCl 300 mg capsule 300 mg PO Q6H #40 CAPSULES 10/17/23 Unknown Rx (Cleocin HCl) oxycodone-acetaminophen 5 mg-325 1 tab PO Q4H PRN Pain 3 days #15 10/17/23 Unknown Rx mg tablet TABLETS albuterol sulfate 0.63 mg/3 mL 0.63 mg (3 mL) inhalation Q4H PRN 12/05/23 Unknown Rx solution for nebulization shortness of breath or wheezing #75 mL prednisone 50 mg tablet 50 mg PO DAILY 5 days #5 tabs 12/05/23 Unknown Rx Allergy/AdvReac Type Severity Reaction Status Date / Time Penicillins Allergy Rash Verified 12/05/23 12:57 erythromycin base AdvReac Unknown Verified 12/05/23 12:57 (Erythromycin Base) Surgical History H/O section History of hysterectomy Social History Smoking Status: Never smoker substance use type: does not use ROS ROS ED ROS Narrative Constitutional: Denies any fevers, chills, headaches, lightness, dizziness Eyes: Denies any change in vision double vision blurry vision Cardiovascular: Complains of chest pressure as noted above denies palpitations Respiratory: Complains of shortness of breath as noted above denies coughing Abdomen: Denies any abdominal pain nausea vomit diarrhea : Denies any urinary symptoms Neurological: Denies any numbness, weakness, tingling Musculoskeletal: Denies back pain Skin: Denies rashes or lesions EXAM Physical Exam Narrative Exam Narrative: General: Patient lying in bed rest comfortably did not appear to be in acute distress Head: Atraumatic, normocephalic Eyes: PERRL bilaterally, EOMI bilateral, no conjunctival injection noted Neck: Soft, supple, trachea midline Cardiovascular: Regular rate and rhythm no murmurs gallops rubs noted Respiratory: Clear to auscultation bilaterally no rales rhonchi or wheezes noted Abdomen: Soft, nondistended, nontender to palpation, bowel sounds present x 4 Extremities: +5/5 strength noted in the bilateral upper and lower extremities, no pedal edema neuroexam Neurological: Patient follow commands knew that she was at [facility] year is 2023 Skin: Warm, dry, intact Const Vital Signs: 12/05/23 12:57 12/05/23 13:08 12/05/23 14:10 Temperature 98 F Temperature Source Temporal Pulse Rate 82 71 Respiratory Rate 14 20 H Respiratory Pattern Normal Blood Pressure 150/97 H Blood Pressure Mean 114 Pulse Ox 96 Oxygen Delivery Method Room Air Room Air 12/05/23 14:57 12/05/23 16:00 Temperature Temperature Source Pulse Rate 81 72 Respiratory Rate 19 H 16 Respiratory Pattern Blood Pressure 165/101 H 147/95 H Blood Pressure Mean 122 112 Pulse Ox 96 96 Oxygen Delivery Method Room Air Room Air MDM MDM MDM Narrative Medical decision making narrative: Patient is a 48-year-old female who presents to the emerged part with a chief complaint of shortness of breath and chest pressure. Patient will have a workup performed here on the differential diagnosis includes but not limited to ACS, pneumonia, PE, asthma exacerbation secondary viral etiology. Once workup is obtained reviewed she will be reevaluated. Patient will be given prednisone and a DuoNeb here. Patient CBC reviewed and showed no evidence leukocytosis white blood cell count normal at 7, hemoglobin stable 14.8, platelet count normal at 263. Patient sodium normal 139, potassium was 3.4, creatinine normal at 0.79. Patient's troponin was less than 3 with a delta troponin normal less than 3. Patient is EKG reviewed and showed sinus rhythm with a rate of 72 bpm. Patient's proBNP normal at 23. Patient's D-dimer was normal at 0.34. Patient's chest x-ray was reviewed and showed no acute cardiopulmonary processes. This was independently reviewed by myself and by radiology. On reevaluation of the patient she is feeling much improved. She states that she has plenty of her albuterol inhaler and notes that she has a nebulizer at home however notes that she is unsure if she has enough nebulized medications that therefore she will be given a prescription for this as well as prednisone for 5-day course. She states that she has an appointment with her primary care physician on Wednesday. Patient would like to go home at this point time with all question concerns answered she will be discharged home in stable condition with instructions return with worsening symptoms or other concerns. Lab Data Labs: Laboratory Results - last 24 hr 12/05/23 12/05/23 14:11 16:24 WBC 7.0 RBC 4.85 Hgb 14.8 Hct 42.6 MCV 87.8 MCH 30.5 MCHC 34.7 RDW Std Deviation 38.0 RDW Coeff of Clara 11.9 Plt Count 263 MPV 10.2 Immature Gran % (Auto) 0.300 Neut % (Auto) 51.6 Lymph % (Auto) 32.3 [place] % (Auto) 5.8 Eos % (Auto) 9.4 H Baso % (Auto) 0.6 Absolute Neuts (auto) 3.6 Absolute Lymphs (auto) 2.27 Nucleated RBC % 0 D-Dimer Quant (PE/DVT) 0.34 Sodium 139 Potassium 3.4 L Chloride 105 Carbon Dioxide 29.0 Anion Gap 5 BUN 16 Creatinine 0.79 Estim Creat Clear Calc 103.04 Est GFR (MDRD) Af Amer 101 Est GFR (MDRD) Non-Af 83 BUN/Creatinine Ratio 20.4 H Glucose 116 H Calcium 8.9 Troponin I High Sens < 3 L < 3 L B-Natriuretic Peptide 23.7 Radiography Diagnostic Testing: Clinical Impression(s) from Imaging Studies Chest X-Ray 12/05/23 13:31 IMPRESSION: Normal x-ray examination of the chest. Electronically Signed: See Vallejo MD at 14:01 EDT Reading Location ID and State: [address] [place] [address] , Service support , Discharge Plan Triage Chief Complaint: Chest Pain ED Provider: Naveen Mcclure Dx/Rx/DC Orders Clinical Impression: Asthma exacerbation Prescriptions: New prednisone 50 mg tablet 50 mg PO DAILY 5 Days Qty: 5 0RF albuterol sulfate 0.63 mg/3 mL solution for nebulization 0.63 mg inhalation Q4H PRN (Reason: shortness of breath or wheezing) Qty: 75 0RF No Action albuterol sulfate [Ventolin HFA] 1 INHALER inhaler 1 - 2 puff inhalation Q4H PRN PRN (Reason: Sob &/Or Wheezing) montelukast [Singulair] 10 mg Tablet 10 mg PO QHS beclomethasone dipropionate 40 mcg/actuation Aerosol 40 mcg INHALATION BID albuterol sulfate 2.5 mg/0.5 mL solution for nebulization 2.5 mg inhalation Q20M PRN (Reason: shortness of breath or wheezing) 5 Days Qty: 30 0RF Rx Instructions: for up to 3 doses hydrocodone-acetaminophen [hydrocodone-acetaminophen] 5-325 mg tablet 1 tab PO Q6H PRN PRN (Reason: Pain) 3 Days Qty: 10 0RF ondansetron [ondansetron] 4 mg tablet,disintegrating 4 mg PO Q8H PRN PRN (Reason: Nausea) Qty: 10 0RF clindamycin HCl [Cleocin HCl] 300 mg capsule 300 mg PO Q6H Qty: 40 0RF oxycodone-acetaminophen 5-325 mg tablet 1 tab PO Q4H PRN (Reason: Pain) 3 Days Qty: 15 0RF Primary Care Provider: Mahsa Lira Referrals: Mahsa Lira MD [Primary Care Provider] - Activity Restrictions/Additional Instructions: Follow with your primary care physician on Wednesday at your next scheduled appointment. Take steroids as prescribed. Return with worsening symptoms or other concerns. Print Language: Nigerien Disposition Disposition: Home, Self Care
[2023-12-05 16:00] VITALS: BP 147/95; PULSE 72; RESP 16; O2SAT 96
[2023-12-05 16:01] LABS: D-Dimer Quantitative (DVT/PE) 0.34 FEU/ug/m (0.27-0.49)
[2023-12-05 16:15] LABS: Reflex Troponin-HS? (from REC) Y
[2023-12-05 16:56] LABS: Troponin-I HS < 3 pg/mL (3.0-54.0)
[2023-12-05 17:10] VITALS: BP 156/94; PULSE 76; RESP 16; TEMP 36.8; O2SAT 96
== END 2023-12-05 17:12 | disposition home or self-care (01) ==
PROVIDERS: Emergency Provider Emergency Medicine; PCP Internal Medicine; Visit Provider Emergency Medicine
DX: J45.901 Unspecified asthma with (acute) exacerbation (principal); Z79.899 Other long term (current) drug therapy
CPT/HCPCS: 71045; 80048; 83880; 84484; 85025; 85379; 87631; 93005; 94640; 99284; A4216